=== PATIENT | female | born 1950 | race Caucasian/White ===

== ENCOUNTER 2017-03-03 10:53 | Inpatient (IN) | payer MEDICARE, OTHER ==
--- NOTE | ~2017-03-03 | CO ---
Unit #: [id number] #: [id number] Patient: ANA MARÍA BECKETT [id number] [facility]. [address] [place], [place] [address] [id number] I MR#: [id number] NAME: ANA MARÍA BECKETT. ROOM: 317 Age: 66 Sex: F Admission Date: 03/03/2017 : 1950 Attending Physician: Nusrat Barriga M.D. Primary Care Physician: Miladys Cardenas Consultation Date: 03/03/2017 CONSULTATION REPORT REASON FOR CONSULTATION Congestive heart failure. HISTORY OF PRESENT ILLNESS This is a 66-year-old white female, previously known to our group with prior hospitalizations. The patient was seen in 09/2016 for bkvrz-lw-jopjecj diastolic congestive heart failure and a right pleural effusion, which required a right thoracentesis. She is known to have COPD; permanent atrial fibrillation; chronic respiratory failure, on home oxygen; iron deficiency anemia; and hypertension. She is followed by [facility] as an outpatient. She presented to the emergency department with complaints of increased swelling, shortness of breath, and cough. Her cough has been nonproductive. There are no reports of dizziness, palpitations, or syncope. She denies chest pain. She has had significant swelling in the breast, abdomen, and lower extremities. She states that she does not follow fluid restriction. She was recently on antibiotics and was told to drink extra water. She does try to maintain a low-sodium diet. Of note, she does live at home and uses a walker to ambulate. In the emergency department; temperature 97.8, pulse 107, respirations 20, blood pressure 98/78, and O2 saturation 98% on room air. She was found to have anasarca and a right pleural effusion. She was admitted and Cardiology was consulted for further management. EKG revealed atrial fibrillation with a very low-voltage QRS. Exam was significant for distant breath and heart sounds. The patient underwent a bedside 2D echocardiogram, which was very limited due to thoracic curve. There is no evidence of a pericardial effusion, but again views were limited. PAST MEDICAL HISTORY 1. A 2D echocardiogram from 09/20/2016 revealed rvtx-on-oakbrmrg tricuspid regurgitation. Trace pulmonic regurgitation. No pericardial effusion. Also had mildly enlarged right atrium and mildly dilated right ventricle. Ejection fraction estimated 55% to 60%. Mild LVH. 2. Chronic diastolic congestive heart failure. 3. History of right pleural effusion, status post thoracentesis on 09/22/2016. 4. Permanent atrial fibrillation. 5. Chronic respiratory failure, on home oxygen. 6. COPD. 7. Obstructive sleep apnea. 8. Hypertension. Unit #: [id number] #: [id number] Patient: ANA MARÍA BECKETT 9. Bipolar. 10. History of common bile duct stent. 11. Kyphoscoliosis. 12. Chronic back pain. 13. History of small-bowel obstruction. 14. History of alcohol abuse, reformed. 15. Active tobacco abuse with current use of electronic cigarettes. PAST SURGICAL HISTORY 1. Cholecystectomy. 2. . 3. Gastric bypass. 4. Hysterectomy. 5. Hernia repair. 6. Right hand surgery. 7. Tummy tuck. 8. ERCP. HOME MEDICATIONS 1. Oxycodone/acetaminophen 10/325 mg, 0.5 tab p.o. q.4 hours p.r.n. 2. Coreg 25 mg p.o. b.i.d. 3. Lasix 20 mg p.o. b.i.d. 4. Zofran 4 mg p.o. q.8 hours p.r.n. 5. Aspirin 81 mg p.o. daily. 6. Vitamin D3 2000 units p.o. daily. 7. Singulair 10 mg p.o. daily. 8. Omeprazole 40 mg p.o. daily. 9. Colace one tablet p.o. daily p.r.n. for constipation. 10. Symbicort 160/4.5 mcg one puff inhalation daily. 11. Albuterol 2 puffs inhalation daily. ALLERGIES Penicillin, and mold. SOCIAL HISTORY The patient lives in a private residence. She uses a walker to ambulate. She is fairly sedentary. She has a history of alcohol abuse, but not current. She has a history of smoking cigarettes for over 30 years. She currently uses E-cigarettes. There are no reports of illicit drug use. FAMILY HISTORY Significant for heart disease in a brother. REVIEW OF SYSTEMS A 10-point review of systems is negative except for details noted above in HPI. PHYSICAL EXAMINATION CONSTITUTIONAL: This is a 66-year-old white female, in no acute distress, but ill appearing. SKIN: Warm and dry. NECK: Supple. No jugular vein distention. No hepatojugular reflux. Normal carotid upstrokes. No carotid bruits auscultated. HEART: S1 and S2. Irregularly irregular. No murmurs, rubs, or gallops. LUNGS: Bilateral breath sounds. Diminished in the right lung. Respirations are even and nonlabored. No rales, rhonchi, or wheezes. ABDOMEN: Soft, nontender, and nondistended. Positive bowel sounds auscultated x4 quadrants. No ascites noted. Unit #: [id number] #: [id number] Patient: ANA MARÍA BECKETT EXTREMITIES: Bilateral lower extremities have +1 pitting edema. DP and PT pulses are 2+. Capillary refill is less than 2 seconds. DIAGNOSTIC STUDIES LABORATORY RESULTS: White blood cell count 14.4, hemoglobin 11.8, hematocrit 36.3, and platelets 205. Sodium 129, potassium 3.1, chloride 91, CO2 of 30, BUN 8, creatinine 0.6, and glucose 103. Troponin 0.05 and 0.05. BNP 400. TSH pending. INR 1.2. IMAGING STUDIES: Chest x-ray reveals a large volume right pleural effusion. Fixed hiatal hernia. Large body habitus. Probable small left pleural effusion. CARDIOVASCULAR STUDIES: Electrocardiogram reveals atrial fibrillation with low-voltage QRS. Nonspecific ST-T wave changes. IMPRESSION 1. Anasarca. 2. Recurrent large right pleural effusion. 3. Wjjge-wu-muojkbd diastolic congestive heart failure. 4. Atrial fibrillation with rapid ventricular response. 5. Hypokalemia. 6. Hyponatremia. 7. Chronic obstructive pulmonary disease. 8. Bipolar disorder. 9. Hypertension. 10. History of common bile duct stricture. 11. Active nicotine abuse with e-cigarettes. PLAN 1. The patient presented to the hospital with complaints of shortness of breath and edema. She was admitted and Cardiology was consulted. 2. Agree with 2 g sodium diet. Strict I's and O's, and fluid restriction. 3. We will start IV diuretics, and monitor electrolytes and renal function. 4. The patient's blood pressure is borderline low. Her carvedilol has been placed on hold. 5. Pulmonology has been consulted for management of right pleural effusion. 6. The patient has been advised to be compliant with fluid restriction. 7. There are no complaints of chest pain. Cardiac enzymes are negative. 8. The patient has been advised to refrain from nicotine. Dictated by... WAYNE Benavidez TD: 03/05/2017 12:22 JOB #: [id number] Unit #: [id number] #: [id number] Patient: ANA MARÍA BECKETT CONSULTATION REPORT Page 1 of 1 X X CONSULTATION REPORT
--- NOTE | ~2017-03-03 | CO ---
Unit #: [id number] #: [id number] Patient: ANA MARÍA BECKETT [id number] [address] [address] [id number] I MR#: [id number] NAME: ANA MARÍA BECKETT. ROOM: 317 Age: 66 Sex: F Admission Date: 03/03/2017 : 1950 Attending Physician: Nusrat Barriga M.D. Primary Care Physician: Miladys Cardenas Consultation Date: 03/04/2017 CONSULTATION REPORT REASON FOR CONSULT Effusion. HISTORY OF PRESENT ILLNESS This is a pleasant 66-year-old female with past medical history significant for diastolic congestive heart failure, atrial fibrillation, COPD, hypertension, bipolar disorder, common bile duct stricture who presented to the emergency room with progressive shortness of breath, fatigue, and generalized edema for the last few days. Patient stated that she had a similar presentation in September 2016. She was discharged on diuretics but currently she is on low-dose of Lasix which she thinks is not doing the trick. She was increased to 40 mg daily before admission but also it did not improve her symptoms. Patient was supposed to be on Pradaxa, but she did not take it because she was not convinced to. PAST MEDICAL HISTORY 1. Diastolic congestive heart failure. 2. Atrial fibrillation. 3. COPD. 4. Hypertension. 5. Bipolar disorder. PAST SURGICAL HISTORY 1. Cholecystectomy. 2. Gastric bypass. 3. Hysterectomy. 4. Hernia repair. 5. Right hand surgery. SOCIAL HISTORY The patient lives with her mom and they both take care of each other. She has a history of alcoholism but she is sober for the last 12-15 years. She continues to smoke electronic cigarettes. She walks with a walker. FAMILY HISTORY Hypertension. ALLERGIES Penicillin and mold. HOME MEDICATIONS 1. Oxycodone and acetaminophen. 2. Coreg. 3. Lasix. Unit #: [id number] #: [id number] Patient: ANA MARÍA BECKETT 4. Zofran. 5. Aspirin. 6. Vitamin D. 7. Montelukast. 8. Omeprazole. 9. Colace. 10. Symbicort. 11. Ventolin. REVIEW OF SYSTEMS A 12-point review of systems was obtained and was negative except for what was mentioned in the HPI. PHYSICAL EXAMINATION GENERAL: The patient is in no acute distress. VITAL SIGNS: Temperature 98.3, pulse 95, respiratory rate 19, blood pressure 107/73. HEENT: Atraumatic, normocephalic. PERRLA. EMOI. NECK: Supple. No JVD. No lymphadenopathy. CHEST: Decreased breath sounds bilaterally, mainly on the right side. HEART: S1, S2. No murmur, gallops, or rubs. ABDOMEN: Soft, nontender. Bowel sounds are positive. No hepatosplenomegaly. EXTREMITIES: Plus 1 edema in the bilateral lower extremities. SKIN: No rashes. CENTRAL NERVOUS SYSTEM: Awake, alert, oriented x3. No focal motor/sensory deficits. EXTREMITIES: Plus 1 edema in the lower extremities. DIAGNOSTIC STUDIES LABORATORY: Creatinine 0.7, sodium 130, potassium 2.9, CO2 of 32. White blood count 6.7. IMAGING: Chest x-ray is consistent with right-sided pleural effusion, probably congestive heart failure related. IMPRESSION 1. Acute on chronic diastolic congestive heart failure exacerbation. 2. Anasarca. 3. Hyponatremia. 4. Chronic obstructive pulmonary disease. 5. Hypertension. 6. Bipolar disorder. PLAN 1. Patient is hemodynamically stable currently. Will continue to monitor very closely. 2. Strict input and output. 3. Bronchodilator as needed. 4. Will proceed with right-sided thoracentesis for diagnostic and therapeutic purposes. 5. IV diuretics per cardiology. 6. Deep venous thrombosis prophylaxis. I would like to thank you for allowing me to be a part of this patient's care. Unit #: [id number] #: [id number] Patient: ANA MARÍA BECKETT Dictated by... Remberto Montaño TD: 03/04/2017 10:21 JOB #: [id number] CONSULTATION REPORT Page 1 of 1 X DIPESH SINGH MD CONSULTATION REPORT
--- NOTE | ~2017-03-03 | HP ---
Unit #: [id number] #: [id number] Patient: ANA MARÍA BECKETT [id number] [facility] [address]. [place], [place] [address] [id number] I MR#: [id number] NAME: ANA MARÍA BECKETT. ROOM: [facility] Age: 66 Sex: F Admission Date: 03/03/2017 : 1950 Attending Physician: Akanksha Herring M.D. HISTORY AND PHYSICAL CHIEF COMPLAINT Swelling all over. HISTORY OF PRESENT ILLNESS The patient is a 66-year-old female with a past medical history of diastolic dysfunction, atrial fibrillation, COPD, hypertension, bipolar disorder, and common bile duct stricture, who presented to the emergency department for evaluation of the above. Of note, the patient was hospitalized at [facility] September 19-2016, for dyspnea. She had a 2D echo according to the Discharge Summary that showed normal LV function. She was also noted to have a large right pleural effusion and underwent thoracentesis. The thoracentesis was transudative in nature and thought to be secondary to congestive heart failure. The patient was discharged home on Pradaxa for atrial fibrillation. Per the patient, she discussed this with her primary care physician and stopped the Pradaxa. She is currently only taking 81 mg of aspirin daily. The patient states that she has had a four-day history of worsening shortness of breath and total body swelling. She states that she weighed 110 pounds about a month ago and is currently 144. She gets her legs wrapped due to chronic lymphedema. They were last wrapped on the 26 of February. She states that she sleeps in a recliner on her side. That is apparently not a new problem. She has had paroxysmal nocturnal dyspnea. She denies any dyspnea on exertion. She denies any chest pain and no cough or fever. She states that she has been taking her medications are prescribed. She takes Lasix 20 mg twice daily. In the emergency department, initial pulse and blood pressure were 107 and 99/78, respectively. Oxygen saturation was 98% on room air. Chest x-ray shows a large right pleural effusion and small left pleural effusion. BNP is 400. She was given 40 mg of Lasix IV, as well as 324 mg of aspirin. Blood pressure dipped into the 80s, most recently 90/69. She is being admitted to [facility] for evaluation and further treatment. PAST MEDICAL HISTORY 1. Admission to [facility] September 19-2016, for dyspnea. She underwent echocardiogram that showed normal LV function per the Discharge Summary. She was seen in consultation by Cardiology and Pulmonology. She underwent thoracentesis that showed transudative fluid consistent with congestive heart failure. She was discharged home on Pradaxa. Unit #: [id number] #: [id number] Patient: ANA MARÍA BECKETT 2. Atrial fibrillation previously on chronic anticoagulation with Pradaxa but not recently due to a discussion with her primary care physician. Now, she is only on 81 mg of aspirin daily. She has not seen Dr. Amin as an outpatient. 3. Diastolic dysfunction with normal ejection fraction in September 2016. 4. Chronic obstructive pulmonary disease. 5. Chronic respiratory failure, on two and a half liters of oxygen per nasal cannula at night. 6. Hypertension. 7. Bipolar disorder. 8. Common bile duct stent. PAST SURGICAL HISTORY 1. Cholecystectomy. 2. Gastric bypass. 3. section. 4. Hysterectomy. 5. Hernia repair. 6. Abdominoplasty. 7. Right hand surgery. SOCIAL HISTORY The patient lives alone. She has a history of alcoholism but has been sober for at least 12 years. She continues to smoke electronic cigarettes. She walks with a walker. FAMILY HISTORY Notable for her dad dying at the age of 90. Hypertension runs in the family. ALLERGIES Penicillin and mold. HOME MEDICATIONS 1. Oxycodone and acetaminophen 10/325 at one-half tablet q.3-4 hours p.r.n. 2. Coreg 25 mg twice daily. 3. Lasix 20 mg twice daily. 4. Zofran 4 mg p.r.n. 5. Aspirin 81 mg daily. 6. Vitamin D3 at 2000 units daily. 7. Montelukast 10 mg daily. 8. Omeprazole 40 mg daily. 9. Colace daily p.r.n. 10. Symbicort 160/4.5 inhaled daily. 11. Ventolin 2 puffs inhaled daily p.r.n. 12. Proventil t.i.d. p.r.n. REVIEW OF SYSTEMS A complete review of systems is negative except as indicated in the History of Present Illness. PHYSICAL EXAMINATION VITAL SIGNS: Temperature is 97.8, pulse 107, respirations 20, blood pressure 99/78, and oxygen saturation is 98% on room air. GENERAL: Patient is a female who is awake, alert, and in no acute distress. HEENT: Head is atraumatic. Mucous membranes are moist. Unit #: [id number] #: [id number] Patient: WHITE,ANA MARÍA Perry NECK: Supple. Trachea is midline. CARDIOVASCULAR: Irregular. LUNGS: Decreased breath sounds. Breathing is not labored. ABDOMEN: Soft with bowel sounds present in all four quadrants. EXTREMITIES: With 4+ pitting edema to the groin. NEUROLOGIC: Patient is awake and alert. She follows commands. PSYCHIATRIC: Mood and affect are normal. Patient is cooperative. SKIN: Skin of examined areas is warm and dry. DIAGNOSTIC STUDIES LABORATORY: Complete blood count notable for hemoglobin and hematocrit of 11.8 and 36.3, respectively. INR is 1.2. Comprehensive metabolic panel notable for sodium of 129, potassium 3.1, chloride 91, BUN and creatinine 8 and 0.6, respectively, calcium is 7.9 but corrects to 9.3 when albumin of 2.3 is accounted for, alkaline phosphatase 116, and magnesium is 1.9. Urinalysis notable for trace leukocyte esterase. BNP is 400. CK is 54 and troponin is 0.03. IMAGING: Chest x-ray shows a large right pleural effusion and possible small left pleural effusion. CARDIOLOGY: EKG shows atrial fibrillation with rapid ventricular response and a rate of 106 beats per minute. ASSESSMENT The patient is a 66-year-old female with: 1. Anasarca. 2. Right pleural effusion and possible left pleural effusion. She underwent thoracentesis in September that was transudative. 3. Congestive heart failure exacerbation, diastolic. The patient had a normal ejection fraction in September 2016. She received 40 mg of Lasix in the emergency department, and blood pressure dropped into the 80s. 4. Atrial fibrillation with rapid ventricular response. Rate is currently 98. She discontinued Pradaxa and is currently on aspirin only. 5. Hypokalemia. 6. Hyponatremia. 7. Chronic obstructive pulmonary disease. 8. Hypertension. 9. Bipolar disorder. 10. Common bile duct stricture. 11. Former smoker although the patient continues to smoke electronic cigarettes. PLAN 1. Admit to ICU. 2. Two gram sodium, 1800 mL fluid-restricted, heart-healthy diet if passes bedside swallow. 3. Dopamine drip per protocol for systolic blood pressure greater than 90. 4. Get results of 2D echo from last admission. 5. Strict I/Os. 6. Daily weights. 7. TSH. 8. Consult Dr. Amin regarding congestive heart failure. 9. Consult Dr. Hunt regarding right pleural effusion. 10. Supplemental oxygen. Unit #: [id number] #: [id number] Patient: ANA MARÍA BECKETT 11. DuoNebs. 12. Blood cultures x2 for further evaluation of hypotension. 13. Potassium/magnesium protocol. 14. Serial cardiac enzymes. 15. Repeat labs in the morning including magnesium. 16. Additional workup and consultants based on above. 1. Dictated by Akanksha Herring M.D. DEVANTE/emerson TD: 03/03/2017 20:02 JOB #: [id number] HISTORY AND PHYSICAL Page 1 of 1 X Akanksha Herring MD X HISTORY AND PHYSICAL
--- NOTE | ~2017-03-03 | CR72 ---
[facility] A Service of [facility] RADIOLOGY TEXT RESULTS PATIENT: ANA MARÍA BECKETT LOCATION: [facility] 317-01 : [birth year] UNIT #: [id number] AGE: [address]: Nusrta Barriga MD SEX: F ORDER DR: [id number] [facility] [address] [place], [place] [address] [id number] MR#: [id number] Acc #: [id number] NAME: ANA MARÍA BECKETT. : 1950 SEX: F STUDY DATE/TIME: 03/03/2017 11:17 UNIT: [facility] ROOM: STUDY DESCRIPTION: CR Chest Single View Portable Attending Physician: Tanya Chua M.D. Ordering Physician: Tanya Chua M.D. Primary Care Physician: Miladys Cardenas MEDICAL IMAGING REPORT This report is preliminary unless electronic signature is present EXAM Portable chest 03/03/2017 at 11:17 hours, [facility] HISTORY 66-year-old female, swelling all over, short of breath, symptoms noted today. History of congestive heart failure. COMPARISON Noncontrast chest CT 09/20/2016 with the portable chest 09/22/2016 FINDINGS AP portable chest exam again demonstrates large body habitus. Heart size is stable. Pulmonary vascularity appears normal with no radiographic evidence for heart failure. There is a large volume right pleural effusion present. Moderate hiatal hernia is also visible on today's portable image. There may be a small left pleural effusion present. No pulmonary infiltrates identified. IMPRESSION Large volume right pleural effusion now present. Previous thoracentesis 09/22/2016. Fixed hiatal hernia. Large body habitus. Probable small left effusion also present today. No evidence for congestive heart failure. Dictated by... Dayne Hsieh M.D. THIS IS AN ELECTRONICALLY VERIFIED REPORT Dayne Hsieh M.D. at 03/04/2017 9:39 AM JBB/jaz TD: 03/03/2017 15:39 [facility] A Service of [facility] RADIOLOGY TEXT RESULTS PATIENT: ANA MARÍA BECKETT LOCATION: A 317-01 : [birth year] UNIT #: [id number] AGE: [address]: Nusrat Barriga MD SEX: F ORDER DR: JOB #: [id number] MEDICAL IMAGING REPORT Page 1 of 1 COPY
--- NOTE | ~2017-03-03 | EKG ---
PATIENT: ANA MARÍA BECKETT UNIT #: [id number] Ventricular Rate: 106 BPM Atrial Rate: 159 BPM QRS Duration: 70 ms Q-T Interval: 296 ms QTC Calculation(Bezet): 393 ms Calculated R [place]: 107 degrees Calculated T [place]: -40 degrees Diagnosis Line: Atrial fibrillation with rapid ventricular Diagnosis Line: response Diagnosis Line: Low voltage QRS Diagnosis Line: Abnormal ECG Diagnosis Line: When compared with ECG of 19-SEP-2016 19:12, Diagnosis Line: No significant change was found Diagnosis Line: Confirmed by ILYA CHADWICK MD ([id number]) on Diagnosis Line: 03/03/2017 10:45:07 PM INTERPRETING : CONCHITA
--- NOTE | ~2017-03-03 | XA231 ---
[facility] A Service of [facility] RADIOLOGY TEXT RESULTS PATIENT: ANA MARÍA BECKETT LOCATION: [facility] 317-01 : [birth year] UNIT #: [id number] AGE: [address]: Nusrat Barriga MD SEX: F ORDER DR: [id number] [facility] [address] [place], [place] [address] [id number] I MR#: [id number] Acc #: [id number] NAME: ANA MARÍA BECKETT. : 1950 SEX: F STUDY DATE/TIME: 03/04/2017 15:35 UNIT: [address] ROOM: [facility] STUDY DESCRIPTION: XA Consult Attending Physician: Nusrat Barriga M.D. Ordering Physician: Nusrat Barrgia M.D. Primary Care Physician: Miladys Cardenas MEDICAL IMAGING REPORT This report is preliminary unless electronic signature is present EXAM Ultrasound of the hemithorax. INDICATION Right pleural effusion. This patient was noted to have a pleural effusion on a CT scan of the chest on 09/20/16. Fluid did appear somewhat loculated at that time. The patient did undergo an ultrasound guided thoracentesis on 09/22/16 with evacuation of about 500 cc of fluid. She has been referred for repeat ultrasound-guided thoracentesis. The risk, benefits and alternatives of the procedure were explained to the patient, and signed, informed consent was obtained. She was seated in the upright position. A preliminary ultrasound of right hemithorax showed only a very small volume of complex fluid. At this point, the procedure was terminated. IMPRESSION On ultrasound, the patient was noted to only have a small volume of complex, purulent material. It was thought to be amenable to ultrasound-guided drainage. Repeat CT of the chest may allow for better evaluation of this patient right pleural fluid. Dictated by... Radha Crooks M.D. THIS IS AN ELECTRONICALLY VERIFIED REPORT Radha Crooks M.D. at 03/05/2017 4:41 PM AFF/ea TD: 03/05/2017 11:37 JOB #: [id number] [facility] A Service of [facility] RADIOLOGY TEXT RESULTS PATIENT: ANA MARÍA BECKETT LOCATION: [facility] 317-01 : [birth year] UNIT #: [id number] AGE: [address]: Nusrat Barriga MD SEX: F ORDER DR: MEDICAL IMAGING REPORT Page 1 of 1 COPY
--- NOTE | ~2017-03-03 | DS ---
Unit #: [id number] #: [id number] Patient: ANA MARÍA BECKETT [id number] [address] [address] [id number] I MR#: [id number] NAME: ANA MARÍA BECKETT. ROOM: 317 Age: 66 Sex: F Admission Date: 03/03/2017 : 1950 Discharge Date: Attending Physician: Nusrat Barriga M.D. Primary Care Physician: Miladys Cardenas DISCHARGE SUMMARY DISCHARGE DIAGNOSES 1. Escherichia coli bacteremia, etiology unclear. 2. Atrial fibrillation with rapid ventricular rate: Patient refusing to take Pradaxa, please note. 3. Anasarca. 4. Ascites. 5. Chronic obstructive pulmonary disease exacerbation. 6. Hypokalemia. 7. Large right loculated pleural effusion. 8. Right hand wounds. 9. Acute on chronic diastolic heart failure. 10. Acute on chronic hypoxic respiratory failure. 11. Hypernatremia. 12. Hyponatremia. 13. Severe protein malnutrition. 14. Hypertension. 15. Bipolar. 16. History of common bile duct stent. 17. Chronic respiratory failure, on 2.5 L oxygen at home at night. CONSULTATIONS 1. Dr. Victor. 2. Dr. Castro. 3. Dr. Stewart. 4. Dr. Giordano. PROCEDURES None. LAB DATA WBC 5.8, hemoglobin 11.6, platelets 299, sodium 130, potassium 4.2, creatinine 0.5, digoxin 0.7. Blood cultures on March 04 shows E. coli. Repeat blood cultures on March [address] of the abdomen and pelvis shows diffuse subcutaneous edema, moderate volume ascites present. Diffuse fatty liver present. CT of the chest shows moderate size effusion on the right with loculation. Small bilateral effusions on the left. ALLERGIES Penicillin. Unit #: [id number] #: [id number] Patient: ANA MARÍA BECKETT DISCHARGE MEDICATIONS 1. Albuterol two puffs inhalation daily. 2. Albuterol nebulizer three times daily p.r.n. shortness of breath. 3. Symbicort 160 mcg, one puff inhalation daily. 4. Zofran 4 mg q.8 p.r.n. nausea. 5. Bactroban, apply topically three times daily. 6. Coreg 6.25 p.o. b.i.d. 7. Digoxin 0.125 mg p.o. daily. 8. Colace 100 mg p.o. daily p.r.n. constipation [id number]. 9. Lasix 40 p.o. b.i.d. 10. Montelukast 10 mg in the morning. 11. Aspirin 81 daily. 12. Percocet 5 mg q.3-4 p.r.n. pain. 13. Spironolactone 12.5 p.o. daily. 14. Omeprazole 40 daily. 15. Potassium 10 mEq daily. 16. Vitamin D3 2000 daily. 17. Ceftriaxone 2 g IV daily. Continue until 03/15/2017. HOSPITALIZATION COURSE 66-year-old admitted because of shortness of breath, found to have CHF. Acute on chronic hypoxic respiratory failure: Currently, she is back to baseline. Continue with home O2. Acute on chronic diastolic heart failure with severe anasarca and bilateral pleural effusion, loculated: Patient could not have thoracentesis. Patient currently breathing better. Continue with Lasix as per cardiology. Gram-negative bacteremia: Etiology unclear. CT of the chest and abdomen did not show any signs of infection. The patient was seen by infectious disease. Initially broad spectrum antibiotics have been started. Currently, patient is on Rocephin. She will continue until 03/15/2017. Patient currently has a midline for antibiotics. Patient will have home health. DC midline after antibiotics are done. Bilateral pleural effusion with ascites secondary to congestive heart failure: Continue with diuretics as per cardiology. Severe protein malnutrition: Continue with high protein diet at home. Hyponatremia secondary to congestive heart failure, currently stable. The patient is noncompliant with medical advice. She is refusing many of her medications including Lasix. I talked at length with her and also the cardiology nurse practitioner talked at length regarding taking her medications as advised. The patient will be discharged with home health. Follow with family physician in one week time. Discharge time taken is 40 minutes. Dictated by..Muna Barriga M.D. Unit #: [id number] #: [id number] Patient: SOPHYANA MARÍA SENA/leeanna TD: 03/10/2017 12:13 JOB #: [id number] DISCHARGE SUMMARY Page 1 of 1 X Nusrat Barriga MD DISCHARGE SUMMARY
--- NOTE | ~2017-03-03 | CT57 ---
[facility] A Service [facility] RADIOLOGY TEXT RESULTS PATIENT: ANA MARÍA BECKETT LOCATION: [facility] 317- : 52 UNIT #: [id number] AGE: [address]: Nusrat Barriga MD SEX: F ORDER DR: [id number] [facility] [address] [place], [place] [address] [id number] I MR#: [id number] Acc #: [id number] NAME: ANA MARÍA BECKETT : 1950 SEX: F STUDY DATE/TIME: 03/05/2017 17:20 UNIT: A U ROOM: [facility] STUDY DESCRIPTION: CT Chest Wo Cont Attending Physician: Nusrat Barriga M.D. Ordering Physician: Nusrat Barriga M.D. MEDICAL IMAGING REPORT This report is preliminary unless electronic signature is present EXAM Chest CT without contrast HISTORY Shortness of breath for the past 4 days. Bacteremia of unknown source. TECHNIQUE Axial images were obtained through the chest without contrast and evaluated at lung and mediastinal windows. This CT exam was performed with one or more of the following radiation dose reduction techniques: automatic exposure control, adjustment of mA and/or kV according to patient size, and iterative reconstruction. COMPARISON STUDIES Previous scan from 09/20/2016. FINDINGS Chest images at mediastinal window show extensive subcutaneous edema over the chest wall and the back. There are bilateral pleural effusions. The volume of pleural fluid is moderate on the right and smaller on the left with partial loculation. No pericardial fluid is seen. There is a sliding hiatal hernia and postoperative changes are noted in the stomach. No adenopathy is noted. Lung window imaging shows compressive atelectasis adjacent to the pleural effusions. There is a small nonspecific peripheral interstitial infiltrate in the lingula. It is new since the previous examination and likely represents mild atelectasis or fibrosis. IMPRESSION 1. There is less pleural fluid than on the previous examination. Small bilateral effusion on the left and moderate-sized effusion on the right with loculation. [facility] A Service [facility] RADIOLOGY TEXT RESULTS PATIENT: ANA MARÍA BECKETT LOCATION: [facility] 317-01 : 52 UNIT #: [id number] AGE: [address]: Nusrat Barriga MD SEX: F ORDER DR: 2. Atelectasis bilaterally, right greater than left. 3. Small nonspecific interstitial infiltrate in the lingula peripherally, not seen on the previous examination. This is of low suspicion for pneumonia. Dictated by... Gwyn Rey M.D. THIS IS AN ELECTRONICALLY VERIFIED REPORT Gwyn Rey M.D. at 03/11/2017 7:10 AM NANDO/wanda TD: 03/05/2017 23:36 JOB #: [id number] MEDICAL IMAGING REPORT Page 1 of 1 COPY
--- NOTE | ~2017-03-03 | CO ---
Unit #: [id number] #: [id number] Patient: ANA MARÍA BECKETT [id number] [address] [place], [place] [address] [id number] I MR#: [id number] NAME: ANA MARÍA BECKETT. ROOM: [facility] Age: 66 Sex: F Admission Date: 03/03/2017 : 1950 Attending Physician: Nusrat Barriga M.D. Primary Care Physician: Miladys Cardenas Consultation Date: 03/09/2017 CONSULTATION REPORT HISTORY OF PRESENT ILLNESS This patient is a 66-year-old white female with multiple cardiopulmonary problems including anasarca, atrial fibrillation, pleural effusion, ascites, various forms of E. coli bacteremia, etiology unclear. She says a couple of areas over her finger, the right index finger and also the back of the hand on the dorsum aspect of the hand, which show small open areas that have been scabbed. It looked potentially infected but I see no abscess formation at this point in time. These areas of concern appear to be superficial and self induced. The patient said that she fell and she possibly could have got a splinter in the right index finger; however, again, there is no clinical evidence of that. For past medical history and further details, see previous notes as well as notes done by her admitting physician and facility service associate. PHYSICAL EXAMINATION GENERAL APPEARANCE: Cooperative, alert, white female. EXTREMITIES: She has three areas of what appear to be superficial, partial-thickness injury with scabbing and weeping from the back of her right hand as well as her right index finger. We will go ahead and treat these by cleaning them as well as placing topical antibiotic ointment on it three times a day. We will see the patient back for follow up in this facility as long as she is here. Dictated by... Perry Stewart M.D. JAMES/adán TD: 03/09/2017 06:29 JOB #: [id number] Unit #: [id number] #: [id number] Patient: ANA MARÍA BECKETT CONSULTATION REPORT Page 1 of 1 X Perry Stewart MD CONSULTATION REPORT
--- NOTE | ~2017-03-03 | CO ---
Unit #: [id number] #: [id number] Patient: ANA MARÍA BECKETT [id number] [address] [address] [id number] I MR#: [id number] NAME: ANA MARÍA BECKETT. ROOM: 317 Age: 66 Sex: F Admission Date: 03/03/2017 : 1950 Attending Physician: Nusrat Barriga M.D. Primary Care Physician: Miladys Cardenas Consultation Date: 03/05/2017 CONSULTATION REPORT REASON FOR CONSULTATION Gram negative bacteremia. 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 The patient reports that in September of this year she was admitted with swelling and fluid overload and shortness of air. She returned to the hospital at this time for similar symptoms. The patient reports that she did not have any fever of chills at home. She denies any nausea or vomiting. She says her bowel pattern is intermittent with diarrhea and constipation. She has multiple GI issues in the past, but none more severe than her normal. The patient was brought to the hospital. She was given diuretics. She reports that her swelling in her extremities, breasts and abdomen overall feels better. She was found to also have a left pleural effusion, but she reports that she was taken down for a thoracentesis yesterday but there was not enough fluid to tap. Ongoing workup showed that she had one or two positive blood cultures for gram negative rods and infectious disease was asked to evaluate as she has no clear symptoms. The patient does note that she had some wounds on her lower extremities, but she has chronic lymphedema and these are being wrapped for the past month by her home health nurse and feels that they are overall improving. PAST MEDICAL HISTORY 1. Congestive heart failure per recent admission earlier this year. 2. Atrial fibrillation. 3. Chronic obstructive pulmonary disease. 4. Chronic respiratory failure on home oxygen at night. 5. Hypertension. 6. Bipolar disorder. 7. Common bile duct stent. 8. Lower extremity lymphedema. PAST SURGICAL HISTORY 1. Cholecystectomy. 2. Gastric bypass. 3. section. 4. Hysterectomy. 5. Hernia repair. 6. Abdominoplasty. 7. Right hand surgery. SOCIAL HISTORY Unit #: [id number] #: [id number] Patient: ANA MARÍA BECKETT The patient lives with family. She denies any current tobacco use, alcohol use or ongoing drug use. ALLERGIES Penicillin. She reports it causes some ingestion intolerance, but denies any wheezes or hives. She also reports she is allergic to cats and mold. CURRENT MEDICATIONS The patient has been given tobramycin times one and she is also on cefepime. For further medications, please refer to the patient's MAR. REVIEW OF SYSTEMS Negative fever. Negative chills. Negative sweats. Improving shortness of breath. No productive sputum, cough. No change in abdominal pattern per her normal and improving lower extremity edema and wounds. PHYSICAL EXAMINATION GENERAL: This is a no apparent distress female who was sitting on the side of the bed when I examined her. She does have some chronic spine curvature and she is obese. VITALS: Temperature 98.2, pulse 102, blood pressure 107/77, respiratory rate 16. HEENT: Pupils are equal. NECK: Supple. LUNGS: Diminished with almost absent breath sounds in the left lower lobe. HEART: S1 and S2 with tachycardia. ABDOMEN: Positive bowel sounds. Soft. No significant tenderness. Obese. EXTREMITIES: Bilateral lower extremities revealed in UNNA boots. When these were removed the patient did have some resolving blisters and she had some chronic skin changes, but no evidence of cellulitis or deep aggressive wounds. DIAGNOSTIC STUDIES IMAGING: Chest film shows large volume right pleural effusion with small left effusion. No congestive heart failure. LABORATORY: BUN 10, creatinine 0.7, sodium 128, potassium 3.6, chloride 92, CO2 29, bilirubin 1.2, AST 22, ALT 17, alkaline phosphatase 105, amylase less than 7, lipase 16. Lactic acid was not done this admission. White blood cell count 9.1, hemoglobin 10.9, hematocrit 33.4, platelets 164. Urinalysis was unremarkable. Microbiology data, urine culture was not done. Negative urinalysis. Blood culture showed 1 of 2 gram negative rods. Suspected e-coli. ASSESSMENT This is a 66-year-old female with a past history of congestive heart failure. She presented to the emergency room with shortness of air, lower extremity edema and body swelling. The patient denied any fever or chills. Recent procedures were suspicious of infection. The patient was found to have transient gram negative bacteremia. Her urinalysis was unremarkable. Exact etiology at this time is unclear. Identification of the gram negative laney is probable e-coli, but is still pending. At this time source is also not her lower extremity as her UNNA boots were removed and there is no significant cellulitis or open wounds. At this time agree with cefepime and the patient has already been given tobramycin one and she appears nontoxic. Will repeat blood cultures times 30 minutes apart and follow on the ID. Will follow the CT scan of the chest, abdomen and Unit #: [id number] #: [id number] Patient: ANA MARÍA BECKETT pelvis ordered by pulmonology at this time. Will discuss with Dr. Pedro Giordano this case and also ask wound care to replace her UNNA boot dressings. Thank you for allowing us to participate in the care of this patient. Further recommendations to follow pending the patient's clinical course. Dictated by... Shankar Hernandezgz TD: 03/05/2017 10:54 JOB #: [id number] CONSULTATION REPORT Page 1 of 1 X X CONSULTATION REPORT
--- NOTE | ~2017-03-03 | EKG ---
PATIENT: ANA MARÍA BECKETT UNIT #: [id number] Ventricular Rate: 103 BPM Atrial Rate: 103 BPM P-R Interval: 80 ms QRS Duration: 6 ms Q-T Interval: 294 ms QTC Calculation(Bezet): 385 ms P Robinson: 114 degrees Calculated R Robinson: 0 degrees Calculated T Robinson: 13 degrees Diagnosis Line: Atrial fibrillation Diagnosis Line: Indeterminate axis Diagnosis Line: Low voltage QRS Diagnosis Line: Nonspecific T wave abnormality Diagnosis Line: Abnormal ECG Diagnosis Line: When compared with ECG of 03-MAR-2017 11:08, Diagnosis Line: No significant change was found Diagnosis Line: Confirmed by ILYA CHADWICK MD ([id number]) on Diagnosis Line: 03/05/2017 7:35:50 AM INTERPRETING ISIDRA ARANGO
--- NOTE | ~2017-03-03 | HP ---
Unit #: [id number] #: [id number] Patient: ANA MARÍA BECKETT [id number] [facility] [address] [place], [place] [address] [id number] I MR#: [id number] NAME: ANA MARÍA BECKETT. ROOM: [facility] Age: 66 Sex: F Admission Date: 03/03/2017 : 1950 Attending Physician: Akanksha Herring M.D. HISTORY AND PHYSICAL CHIEF COMPLAINT Swelling all over. HISTORY OF PRESENT ILLNESS The patient is a 66-year-old female with a past medical history of diastolic dysfunction, atrial fibrillation, COPD, hypertension, bipolar disorder, and common bile duct stricture, who presented to the emergency department for evaluation of the above. Of note, the patient was hospitalized at [facility] September 19-2016, for dyspnea. She had a 2D echo according to the Discharge Summary that showed normal LV function. She was also noted to have a large right pleural effusion and underwent thoracentesis. The thoracentesis was transudative in nature and thought to be secondary to congestive heart failure. The patient was discharged home on Pradaxa for atrial fibrillation. Per the patient, she discussed this with her primary care physician and stopped the Pradaxa. She is currently only taking 81 mg of aspirin daily. The patient states that she has had a four-day history of worsening shortness of breath and total body swelling. She states that she weighed 110 pounds about a month ago and is currently 144. She gets her legs wrapped due to chronic lymphedema. They were last wrapped on the 26 of February. She states that she sleeps in a recliner on her side. That is apparently not a new problem. She has had paroxysmal nocturnal dyspnea. She denies any dyspnea on exertion. She denies any chest pain and no cough or fever. She states that she has been taking her medications are prescribed. She takes Lasix 20 mg twice daily. In the emergency department, initial pulse and blood pressure were 107 and 99/78, respectively. Oxygen saturation was 98% on room air. Chest x-ray shows a large right pleural effusion and small left pleural effusion. BNP is 400. She was given 40 mg of Lasix IV, as well as 324 mg of aspirin. Blood pressure dipped into the 80s, most recently 90/69. She is being admitted to [facility] for evaluation and further treatment. PAST MEDICAL HISTORY 1. Admission to [facility] September 19-2016, for dyspnea. She underwent echocardiogram that showed normal LV function per the Discharge Summary. She was seen in consultation by Cardiology and Pulmonology. She underwent thoracentesis that showed transudative fluid consistent with congestive heart failure. She was discharged home on Pradaxa. Unit #: [id number] #: [id number] Patient: ANA MARÍA BECKETT 2. Atrial fibrillation previously on chronic anticoagulation with Pradaxa but not recently due to a discussion with her primary care physician. Now, she is only on 81 mg of aspirin daily. She has not seen Dr. Amin as an outpatient. 3. Diastolic dysfunction with normal ejection fraction in September 2016. 4. Chronic obstructive pulmonary disease. 5. Chronic respiratory failure, on two and a half liters of oxygen per nasal cannula at night. 6. Hypertension. 7. Bipolar disorder. 8. Common bile duct stent. PAST SURGICAL HISTORY 1. Cholecystectomy. 2. Gastric bypass. 3. section. 4. Hysterectomy. 5. Hernia repair. 6. Abdominoplasty. 7. Right hand surgery. SOCIAL HISTORY The patient lives alone. She has a history of alcoholism but has been sober for at least 12 years. She continues to smoke electronic cigarettes. She walks with a walker. FAMILY HISTORY Notable for her dad dying at the age of 90. Hypertension runs in the family. ALLERGIES Penicillin and mold. HOME MEDICATIONS 1. Oxycodone and acetaminophen 10/325 at one-half tablet q.3-4 hours p.r.n. 2. Coreg 25 mg twice daily. 3. Lasix 20 mg twice daily. 4. Zofran 4 mg p.r.n. 5. Aspirin 81 mg daily. 6. Vitamin D3 at 2000 units daily. 7. Montelukast 10 mg daily. 8. Omeprazole 40 mg daily. 9. Colace daily p.r.n. 10. Symbicort 160/4.5 inhaled daily. 11. Ventolin 2 puffs inhaled daily p.r.n. 12. Proventil t.i.d. p.r.n. REVIEW OF SYSTEMS A complete review of systems is negative except as indicated in the History of Present Illness. PHYSICAL EXAMINATION VITAL SIGNS: Temperature is 97.8, pulse 107, respirations 20, blood pressure 99/78, and oxygen saturation is 98% on room air. GENERAL: Patient is a female who is awake, alert, and in no acute distress. HEENT: Head is atraumatic. Mucous membranes are moist. NECK: Supple. Trachea is midline. Unit #: [id number] #: [id number] Patient: ANA MARÍA BECKETT CARDIOVASCULAR: Irregular. LUNGS: Decreased breath sounds. Breathing is not labored. ABDOMEN: Soft with bowel sounds present in all four quadrants. EXTREMITIES: With 4+ pitting edema to the groin. NEUROLOGIC: Patient is awake and alert. She follows commands. PSYCHIATRIC: Mood and affect are normal. Patient is cooperative. SKIN: Skin of examined areas is warm and dry. DIAGNOSTIC STUDIES LABORATORY: Complete blood count notable for hemoglobin and hematocrit of 11.8 and 36.3, respectively. INR is 1.2. Comprehensive metabolic panel notable for sodium of 129, potassium 3.1, chloride 91, BUN and creatinine 8 and 0.6, respectively, calcium is 7.9 but corrects to 9.3 when albumin of 2.3 is accounted for, alkaline phosphatase 116, and magnesium is 1.9. Urinalysis notable for trace leukocyte esterase. BNP is 400. CK is 54 and troponin is 0.03. IMAGING: Chest x-ray shows a large right pleural effusion and possible small left pleural effusion. CARDIOLOGY: EKG shows atrial fibrillation with rapid ventricular response and a rate of 106 beats per minute. ASSESSMENT The patient is a 66-year-old female with: 1. Anasarca. 2. Right pleural effusion and possible left pleural effusion. She underwent thoracentesis in September that was transudative. 3. Congestive heart failure exacerbation, diastolic. The patient had a normal ejection fraction in September 2016. She received 40 mg of Lasix in the emergency department, and blood pressure dropped into the 80s. 4. Atrial fibrillation with rapid ventricular response. Rate is currently 98. She discontinued Pradaxa and is currently on aspirin only. 5. Hypokalemia. 6. Hyponatremia. 7. Chronic obstructive pulmonary disease. 8. Hypertension. 9. Bipolar disorder. 10. Common bile duct stricture. 11. Former smoker although the patient continues to smoke electronic cigarettes. PLAN 1. Admit to ICU. 2. Two gram sodium, 1800 mL fluid-restricted, heart-healthy diet if passes bedside swallow. 3. Dopamine drip per protocol for systolic blood pressure greater than 90. 4. Get results of 2D echo from last admission. 5. Strict I/Os. 6. Daily weights. 7. TSH. 8. Consult Dr. Amin regarding congestive heart failure. 9. Consult Dr. Hunt regarding right pleural effusion. 10. Supplemental oxygen. 11. DuoNebs. 12. Blood cultures x2 for further evaluation of hypotension. 13. Potassium/magnesium protocol. Unit #: [id number] #: [id number] Patient: ANA MARÍA BECKETT 14. Serial cardiac enzymes. 15. Repeat labs in the morning including magnesium. 16. Additional workup and consultants based on above. Forty-one (41) minutes critical care time spent in the care of this patient (2:25 to 3:06 p.m.). Dictated by... Akanksha Herring M.D. AW/emerson TD: 03/03/2017 20:02 JOB #: [id number] Dictated by Remberto Jc/am TD: 03/03/2017 20:28 JOB #: [id number] CC: Gemma/myrna Please Delete HISTORY AND PHYSICAL Page 1 of 1 X Akanksha Herring MD HISTORY AND PHYSICAL
--- NOTE | ~2017-03-03 | CT2 ---
[facility] A Service of [facility] & [facility] RADIOLOGY TEXT RESULTS PATIENT: ANA MARÍA BECKETT LOCATION: [facility] 317- : 52 UNIT #: [id number] AGE: [address]: Nusrat Barriga MD SEX: F ORDER DR: [id number] [facility]. [place], [place] [address] [id number] MR#: [id number] Acc #: [id number] NAME: ANA MARÍA BECKETT : 1950 SEX: F STUDY DATE/TIME: 03/05/2017 17:23 UNIT: A PCU ROOM: [facility] STUDY DESCRIPTION: CT Abd and Pelv W Cont Attending Physician: Nusrat Barriga M.D. Ordering Physician: Nusrat Barriga M.D. MEDICAL IMAGING REPORT This report is preliminary unless electronic signature is present EXAM Abdomen and pelvis CT with contrast HISTORY Shortness of breath for the past 4 days with a total body swelling and bacteremia of uncertain etiology. TECHNIQUE Axial images were obtained with intravenous contrast. 100 mL of Isovue was used. This CT exam was performed with one or more of the following radiation dose reduction techniques: automatic exposure control, adjustment of mA and/or kV according to patient size, and iterative reconstruction. FINDINGS There is a small hiatal hernia. Moderate volume ascites is seen in the peritoneal cavity. No loculated collections are seen to suggest an abscess. Generalized edema is seen over the abdomen and upper legs. The liver shows diffuse fatty infiltration. The spleen, kidneys, adrenals and pancreas are unremarkable and unchanged. There is no evidence of retroperitoneal adenopathy. No distended bowel loops are seen to suggest obstruction. In the pelvis, ascites is noted. There is no evidence of pelvic adenopathy, mass or fluid collection. Leg swelling is asymmetrically greater on the left than on the right. No pelvic vein thrombosis is identified. IMPRESSION 1. Diffuse subcutaneous edema extending down both legs with more leg swelling on the left than on the right. 2. Moderate volume ascites, new since the previous scan. No loculated collections are seen to suggest abscess. [facility] A Service of [facility] & [facility] RADIOLOGY TEXT RESULTS PATIENT: ANA MARÍA BECKETT LOCATION: [facility] 317-01 : [birth year] UNIT #: [id number] AGE: [address]: Nusrat Barriga MD SEX: F ORDER DR: 3. No evidence of bowel obstruction. 4. Diffuse fatty infiltration of the liver. Dictated by... Gwyn Rey M.D. THIS IS AN ELECTRONICALLY VERIFIED REPORT Gwyn Rey M.D. at 03/11/2017 7:10 AM NANDO/wanda TD: 03/05/2017 23:38 JOB #: [id number] MEDICAL IMAGING REPORT Page 1 of 1 COPY
[~2017-03-03 10:53] MED LIST: ALBUTEROL 0.5ML INH; ALBUTEROL MININEB NEB; ALBUTEROL17 GM INH; ALDACTONE25 MG PO; AMLODIPINE BESY10 MG PO; ASPIRIN EC81 M1 PO; ASPIRIN81 M2 PO; ATENOLOL PO; BACTRIM DS TABL1 TAB PO; CARVEDILOL25 MG PO; CHLORTHALIDONE25 MG PO; COLACE PO; CYANOCOBAL1000 MCG/1 IJ; DARVOCET-N 1001 TAB PO; DITROPAN XL5 M1 PO; FERRO-TIME325 MG PO; FERROUS SULFATE PO; FUROSEMIDE40 MG PO; KCL PO; KLOR-CON SPRIN10 MEQ PO; LASIX PO; LISINOPRIL30 MG PO; LORTAB 10/500 T1 TAB PO; LOTREL 10/20 MG1 CAP PO; MILK OF MAGNESIA PO; MUCINEX1200 MG/BO PO; NITROGYLCERIN SUBLINGUAL; NORVASC10 MG PO; OMEPRAZOLE20 M2 PO; OXYCODON HCL-AP1 TA2 PO; OXYCODONE-ACET1 EAC1 PO; PLAVIX PO; PLENDIL PO; PRILOSEC PO; PROAIR HFA8.5 GM IH; PROAIR HFA8.5 GM INH; SYMBICORT INH; TRIAMCINOLONE A15 G2 EXT; VASOTEC PO; VITAMIN D32000 UNIT PO; ZESTRIL40 MG PO; ZOFRAN ODT4 MG DOB; ZOFRAN2 MG/M1 PO
[2017-03-03 11:22] LABS: BASOPHIL% 0.6 % (0-2.5); EOSINOPHIL% 0.8 % (0.0-7.0); HEMATOCRIT 36.3 % (35.0-45.0); HEMOGLOBIN 11.8 gm/dL (12.0-16.0); LYMPHOCYTE# 0.8 X10e3 (1.0-3.5); LYMPHOCYTE% 17.1 % (17.0-45.0); MEAN CELL VOLUME 86.4 FL (83-96); MEAN CORPUSCULAR HEMOGLOBIN 28.1 PG (28-34); MEAN CORPUSCULAR HGB CONC 32.5 g/dL (30-36); MEAN PLATELET VOLUME 8.4 FL (6.5-11.5); MONOCYTE# 0.5 X10e3 (0-1.0); MONOCYTE% 10.8 % (3.0-12.0); NEUTROPHIL# 3.1 X10e3 (1.5-7.1); NEUTROPHIL% 70.7 % (40-75); PLATELET COUNT 205 X10e3 (140-420); RED CELL DISTRIBUTION WIDTH 15.1 % (11.0-15.5); WHITE BLOOD COUNT 4.4 X10e3 (4.0-10.5)
[2017-03-03 11:29] LABS: DIFF IND NO
[2017-03-03 11:44] LABS: INR 1.2; PARTIAL THROMBOPLASTIN TIME 27.9 SECONDS (23.5-31.3); PROTHROMBIN TIME (PATIENT) 13.2 SECONDS (10.0-11.7)
[2017-03-03 11:59] LABS: URINE SOURCE CLEAN CATCH
[2017-03-03 12:00] LABS: ALBUMIN SERUM 2.3 g/dL (3.5-5.0); BILIRUBIN, DIRECT 0.3 mg/dL (0.0-0.2); BILIRUBIN,INDIRECT 0.4 mg/dL (0.0-0.9); BILIRUBIN,TOTAL 0.7 mg/dL (0.2-2.0); BUN/CREATININE RATIO 13.33; CALCIUM SERUM 7.9 mg/dL (8.4-10.2); CREATININE SERUM 0.6 mg/dL (0.6-1.4); GLOM FILT RATE Estimated 96.3 mL/min (>60); MAGNESIUM 1.9 mg/dL (1.6-3.0); POTASSIUM 3.1 mmol/L (3.5-5.1); PROTEIN TOTAL SERUM 5.3 g/dL (6.0-8.3)
[2017-03-03 12:02] LABS: URINE APPEARANCE CLEAR; URINE BILIRUBIN NEG (NEG); URINE BLOOD NEG (NEG); URINE COLOR YELLOW; URINE GLUCOSE NEG (NEG); URINE KETONE NEG (NEG); URINE LEUKOCYTE ESTERASE TRACE (NEG); URINE NITRATE NEG (NEG); URINE PH 6.5 (5-8); URINE PROTEIN NEG (NEG); URINE SPECIFIC GRAVITY 1.009 (1.003-1.035); URINE UROBILINOGEN 0.2 MG/DL (NEG)
[2017-03-03 12:04] LABS: URBCS1 AUWI 0-2 /[HPF] (0-2); URINE BACTERIA AUWI NEG (NEGATIVE); URINE SQUAMOUS EPITHELIAL CELL NONE SEEN /[HPF]; UWBCS1 AUWI 0-2 (0-5)
[2017-03-03 12:05] LABS: CULTURE INDICATED? NO
[2017-03-03 12:55] LABS: CK TOTAL 54 IU/L (26-140)
[2017-03-03 13:13] LABS: POC - CKMB <1.0 ng/mL (0.0-7.9); POC - TROPONIN <0.05 ng/mL (<=0.05)
[2017-03-03] MEDS ORDERED: OXYCODONE-ACET1 EAC1 PO (13:56)
[2017-03-03] MEDS ORDERED: LASIX20 MG PO (13:57)
[2017-03-03] MEDS ORDERED: ZOFRAN ODT4 M1 PO (13:57)
[2017-03-03] MEDS ORDERED: CARVEDILOL25 MG PO (13:57)
[2017-03-03] MEDS ORDERED: ASPIRIN81 M2 PO (13:58)
[2017-03-03] MEDS ORDERED: MONTELUKAST SOD10 MG PO (13:58)
[2017-03-03] MEDS ORDERED: VITAMIN D32000 UNI1 PO (13:58)
[2017-03-03] MEDS ORDERED: OMEPRAZOLE40 M1 PO (13:58)
[2017-03-03] MEDS ORDERED: ALBUTEROL17 GM INH (13:59)
[2017-03-03] MEDS ORDERED: SYMBICORT INH (13:59)
[2017-03-03] MEDS ORDERED: COLACE PO (13:59)
[2017-03-03] MEDS ORDERED: ALBUTEROL 0.5ML NEB (14:00)
[2017-03-03 20:35] LABS: CK TOTAL 40 IU/L (26-140)
[2017-03-04 02:00] LABS: CK TOTAL 36 IU/L (26-140)
[2017-03-04 05:32] LABS: BASOPHIL% 0.3 % (0-2.5); EOSINOPHIL% 0.1 % (0.0-7.0); HEMATOCRIT 32.4 % (35.0-45.0); HEMOGLOBIN 10.7 gm/dL (12.0-16.0); LYMPHOCYTE# 0.7 X10e3 (1.0-3.5); LYMPHOCYTE% 10.8 % (17.0-45.0); MEAN CELL VOLUME 85.4 FL (83-96); MEAN CORPUSCULAR HEMOGLOBIN 28.2 PG (28-34); MEAN PLATELET VOLUME 8.4 FL (6.5-11.5); MONOCYTE# 0.7 X10e3 (0-1.0); MONOCYTE% 10.1 % (3.0-12.0); NEUTROPHIL# 5.3 X10e3 (1.5-7.1); NEUTROPHIL% 78.7 % (40-75); PLATELET COUNT 177 X10e3 (140-420); RED BLOOD COUNT 3.79 X10e (3.90-5.30); RED CELL DISTRIBUTION WIDTH 15.4 % (11.0-15.5)
[2017-03-04 05:34] LABS: DIFF IND NO; WHITE BLOOD COUNT 6.7 X10e3 (4.0-10.5)
[2017-03-04 06:27] LABS: BILIRUBIN,TOTAL 1.2 mg/dL (0.2-2.0); BUN/CREATININE RATIO 11.42; CALCIUM SERUM 7.8 mg/dL (8.4-10.2); CREATININE SERUM 0.7 mg/dL (0.6-1.4); GLOM FILT RATE Estimated 91.6 mL/min (>60); MAGNESIUM 1.7 mg/dL (1.6-3.0); PROTEIN TOTAL SERUM 4.7 g/dL (6.0-8.3)
[2017-03-04 06:38] LABS: POTASSIUM 2.9 mmol/L (3.5-5.1)
[2017-03-05 06:13] LABS: BASOPHIL% 0.1 % (0-2.5); HEMATOCRIT 33.4 % (35.0-45.0); HEMOGLOBIN 10.9 gm/dL (12.0-16.0); LYMPHOCYTE# 0.8 X10e3 (1.0-3.5); LYMPHOCYTE% 8.7 % (17.0-45.0); MEAN CELL VOLUME 86.7 FL (83-96); MEAN CORPUSCULAR HEMOGLOBIN 28.4 PG (28-34); MEAN CORPUSCULAR HGB CONC 32.7 g/dL (30-36); MONOCYTE% 10.8 % (3.0-12.0); NEUTROPHIL# 7.3 X10e3 (1.5-7.1); NEUTROPHIL% 80.4 % (40-75); PLATELET COUNT 164 X10e3 (140-420); RED BLOOD COUNT 3.85 X10e (3.90-5.30); RED CELL DISTRIBUTION WIDTH 15.9 % (11.0-15.5); WHITE BLOOD COUNT 9.1 X10e3 (4.0-10.5)
[2017-03-05 06:23] LABS: DIFF IND NO
[2017-03-05 06:48] LABS: BUN/CREATININE RATIO 14.28; CALCIUM SERUM 7.9 mg/dL (8.4-10.2); CREATININE SERUM 0.7 mg/dL (0.6-1.4); GLOM FILT RATE Estimated 91.6 mL/min (>60); PHOSPHOROUS 3.3 mg/dL (2.5-4.6); POTASSIUM 3.6 mmol/L (3.5-5.1)
[2017-03-06 07:01] LABS: HEMATOCRIT 36.2 % (35.0-45.0); HEMOGLOBIN 11.7 gm/dL (12.0-16.0); MEAN CELL VOLUME 86.9 FL (83-96); MEAN CORPUSCULAR HGB CONC 32.2 g/dL (30-36); MEAN PLATELET VOLUME 8.9 FL (6.5-11.5); RED BLOOD COUNT 4.17 X10e (3.90-5.30); RED CELL DISTRIBUTION WIDTH 15.8 % (11.0-15.5); WHITE BLOOD COUNT 8.7 X10e3 (4.0-10.5)
[2017-03-06 07:33] LABS: BUN/CREATININE RATIO 17.14; CALCIUM SERUM 8.2 mg/dL (8.4-10.2); CREATININE SERUM 0.7 mg/dL (0.6-1.4); GLOM FILT RATE Estimated 91.6 mL/min (>60); PHOSPHOROUS 3.1 mg/dL (2.5-4.6); POTASSIUM 4.7 mmol/L (3.5-5.1)
[2017-03-07 06:39] LABS: HEMATOCRIT 34.3 % (35.0-45.0); HEMOGLOBIN 11.2 gm/dL (12.0-16.0); MEAN CELL VOLUME 86.6 FL (83-96); MEAN CORPUSCULAR HEMOGLOBIN 28.3 PG (28-34); MEAN CORPUSCULAR HGB CONC 32.7 g/dL (30-36); MEAN PLATELET VOLUME 8.6 FL (6.5-11.5); RED BLOOD COUNT 3.96 X10e (3.90-5.30); RED CELL DISTRIBUTION WIDTH 16.1 % (11.0-15.5); WHITE BLOOD COUNT 6.9 X10e3 (4.0-10.5)
[2017-03-07 07:22] LABS: ALBUMIN SERUM 1.8 g/dL (3.5-5.0); BILIRUBIN,TOTAL 0.2 mg/dL (0.2-2.0); BUN/CREATININE RATIO 15.71; CALCIUM SERUM 7.7 mg/dL (8.4-10.2); CREATININE SERUM 0.7 mg/dL (0.6-1.4); GLOM FILT RATE Estimated 91.6 mL/min (>60); MAGNESIUM 1.8 mg/dL (1.6-3.0); POTASSIUM 4.4 mmol/L (3.5-5.1); PROTEIN TOTAL SERUM 4.9 g/dL (6.0-8.3)
[2017-03-08 06:25] LABS: CALCIUM SERUM 7.8 mg/dL (8.4-10.2); CREATININE SERUM 0.5 mg/dL (0.6-1.4); GLOM FILT RATE Estimated 102.3 mL/min (>60); POTASSIUM 4.5 mmol/L (3.5-5.1)
[2017-03-09 06:39] LABS: HEMATOCRIT 38.2 % (35.0-45.0); HEMOGLOBIN 12.5 gm/dL (12.0-16.0); MEAN CELL VOLUME 86.3 FL (83-96); MEAN CORPUSCULAR HEMOGLOBIN 28.2 PG (28-34); MEAN CORPUSCULAR HGB CONC 32.7 g/dL (30-36); MEAN PLATELET VOLUME 8.2 FL (6.5-11.5); RED BLOOD COUNT 4.42 X10e (3.90-5.30); RED CELL DISTRIBUTION WIDTH 16.1 % (11.0-15.5); WHITE BLOOD COUNT 5.8 X10e3 (4.0-10.5)
[2017-03-09 07:42] LABS: CREATININE SERUM 0.5 mg/dL (0.6-1.4); DIGOXIN (LANOXIN) 0.7 ng/ml (1.0-2.0); GLOM FILT RATE Estimated 102.3 mL/min (>60); POTASSIUM 4.2 mmol/L (3.5-5.1)
[2017-03-10 10:43] LABS: BASOPHIL% 0.3 % (0-2.5); EOSINOPHIL% 0.7 % (0.0-7.0); HEMATOCRIT 35.7 % (35.0-45.0); HEMOGLOBIN 11.6 gm/dL (12.0-16.0); LYMPHOCYTE% 17.1 % (17.0-45.0); MEAN CELL VOLUME 86.9 FL (83-96); MEAN CORPUSCULAR HEMOGLOBIN 28.1 PG (28-34); MEAN CORPUSCULAR HGB CONC 32.3 g/dL (30-36); MEAN PLATELET VOLUME 7.7 FL (6.5-11.5); MONOCYTE# 0.6 X10e3 (0-1.0); MONOCYTE% 10.4 % (3.0-12.0); NEUTROPHIL# 4.1 X10e3 (1.5-7.1); NEUTROPHIL% 71.5 % (40-75); PLATELET COUNT 299 X10e3 (140-420); RED BLOOD COUNT 4.11 X10e (3.90-5.30); RED CELL DISTRIBUTION WIDTH 15.9 % (11.0-15.5); WHITE BLOOD COUNT 5.8 X10e3 (4.0-10.5)
[2017-03-10 10:45] LABS: DIFF IND NO
[2017-03-10] MEDS ORDERED: COREG6.25 M1 PO (11:21)
[2017-03-10] MEDS ORDERED: BACTROBAN15 GM TOP (11:23)
[2017-03-10] MEDS ORDERED: LANOXIN125 MCG PO (11:23)
[2017-03-10] MEDS ORDERED: ALDACTONE25 MG PO (11:26)
[2017-03-10] MEDS ORDERED: K-DUR20 ME1 PO (11:27)
[2017-03-10] MEDS ORDERED: CEFTRIAXONE1 GM IV (11:28)
== END 2017-03-10 15:43 | disposition home health service (06) | DRG 291 ==
LOC: CED 10:53 → C3A PCU 15:10 → CEDOF 15:10 → CED 15:35 → C3A PCU 15:35 → CEDOF 18:02 → C3A PCU 03-04 07:58
PROVIDERS: Family Medicine; Internal Medicine; Internal Medicine Cardiovascular Disease; Student in an Organized Health Care Education/Training Program
PROC: B24BZZZ Ultrasonography of Heart with Aorta (ICD-10-PCS; principal; 2017-03-03)
PROC: 05H933Z Insertion of Infusion Device into Right Brachial Vein, Percutaneous Approach (ICD-10-PCS; 2017-03-09)
PROC: B54MZZA Ultrasonography of Right Upper Extremity Veins, Guidance (ICD-10-PCS; 2017-03-09)
DX: I11.0 Hypertensive heart disease with heart failure (principal); J96.21 Acute and chronic respiratory failure with hypoxia; E43 Unspecified severe protein-calorie malnutrition; E87.0 Hyperosmolality and hypernatremia; R18.8 Other ascites; Z99.81 Dependence on supplemental oxygen; E87.1 Hypo-osmolality and hyponatremia; I50.33 Acute on chronic diastolic (congestive) heart failure; Z68.31 Body mass index [BMI] 31.0-31.9, adult; F17.290 Nicotine dependence, other tobacco product, uncomplicated; F31.9 Bipolar disorder, unspecified; B96.20 Unspecified Escherichia coli [E. coli] as the cause of diseases classified elsewhere; I48.2 Chronic atrial fibrillation; J44.9 Chronic obstructive pulmonary disease, unspecified; E87.6 Hypokalemia; G89.29 Other chronic pain; M54.9 Dorsalgia, unspecified; Z88.0 Allergy status to penicillin; Z91.19 Patient's noncompliance with other medical treatment and regimen; Z90.49 Acquired absence of other specified parts of digestive tract; Z90.710 Acquired absence of both cervix and uterus; Z79.82 Long term (current) use of aspirin; Z98.84 Bariatric surgery status; Z82.49 Family history of ischemic heart disease and other diseases of the circulatory system; D50.9 Iron deficiency anemia, unspecified; E88.09 Other disorders of plasma-protein metabolism, not elsewhere classified; G47.33 Obstructive sleep apnea (adult) (pediatric); L98.9 Disorder of the skin and subcutaneous tissue, unspecified; M41.9 Scoliosis, unspecified
CPT/HCPCS: 36415; 51702; 71010; 71250; 74177; 76140; 80048; 80053; 80076; 80162; 81003; 82550; 82553; 83615; 83735; 83880; 84100; 84132; 84443; 84484; 85025; 85027; 85610; 85730; 87040; 87077; 87186; 93005; 93308; 94640; 94664; 94760; 96374; 97162; 97165; 99285; G8978-GP; G8979-GP; G8980-GP; G8987-GO; G8988-GO; G8989-GO; J0692; J0696; J1160; J1940; J3260; J3475; J3490; Q9967

== ENCOUNTER 2017-04-09 14:03 | Inpatient (IN) | payer MEDICARE, OTHER ==
[~2017-04-09] VITALS: Ht 144.8 cm; Wt 62.2 kg
--- NOTE | ~2017-04-09 | CO ---
Unit #: [id number] #: [id number] Patient: ANA MARÍA BECKETT [id number] [address] [address] [id number] MR#: [id number] NAME: ANA MARÍA BECKETT ROOM: 304 Age: 66 Sex: F Admission Date: 04/09/2017 : 1950 Attending Physician: Maribeth Bergman M.D. Primary Care Physician: Miladys Cardenas CONSULTATION REPORT REASON FOR ADMISSION Shortness of breath. HISTORY OF PRESENT ILLNESS This is a well known patient to our service. 66-year-old female with a past medical history significant for chronic diastolic congestive heart failure, obstructive sleep apnea, COPD, chronic hypoxic respiratory failure, who presented to the emergency room with a few days history of wheezing, progressive shortness of breath, cough productive of any sputum. Patient denied any chest pain, nausea, vomiting or diarrhea. The patient chronically is on 2 L nasal cannula and she lives at home with her 88-year-old mother. They both take care of each other but they are both in bad shape and she has refused in the past being at a residential. PAST MEDICAL HISTORY 1. Chronic diastolic congestive heart failure. 2. COPD. 3. Chronic hypoxic respiratory failure. 4. Severe protein malnutrition. 5. Hypertension. 6. Bipolar disorder. 7. Lymphedema. 8. Chronic atrial fibrillation. PAST SURGICAL HISTORY 1. Cholecystectomy. 2. Gastric bypass surgery. 3. section. 4. Hysterectomy. 5. Hernia repair. 6. Right hand surgery. 7. Common bile duct stenting. ALLERGIES Penicillin, molds. HOME MEDICATIONS 1. Coreg. 2. Digoxin. 3. Prilosec. 4. Aldactone. 5. Symbicort. Unit #: [id number] #: [id number] Patient: ANA MARÍA BECKETT 6. Prozac. 7. Klor-Con. 8. Singulair. 9. Lasix. 10. Percocet. 11. Aspirin. FAMILY HISTORY Hypertension. SOCIAL HISTORY Patient lives with her mother at home and they take care of each other. She has a history of alcohol abuse but hasn't drank in over a decade. She continues to smoke e-cigarettes and she denied any drug abuse. REVIEW OF SYSTEMS Twelve point review of systems were obtained and were negative except for what was mentioned in the HPI. PHYSICAL EXAMINATION GENERAL: The patient is lethargic but easy to arouse. VITAL SIGNS: Temperature 98.2, blood pressure 105/63, respiratory rate 16, O2 saturation 96% on 3 L nasal cannula. HEENT: Atraumatic, normocephalic. PERRLA, EOMI. NECK: Supple. No JVD, no lymphadenopathy. CHEST: Very shallow breathing with mild rhonchi at the bases. HEART: S1, S2. No murmur, gallops or rubs. ABDOMEN: Soft, nontender. Bowel sounds positive. No hepatosplenomegaly. EXTREMITIES: No edema or cyanosis. SKIN: No rashes. HEALTHCARE MARKETER: Awake, alert, oriented x3 but she is lethargic at this point. No focal motor/sensory deficit. DIAGNOSTIC STUDIES LABORATORY: Creatinine 0.7, sodium 127, CO2 90, white blood count 8.0, hemoglobin 13.7, platelets 219. IMAGING: Chest x-ray is reviewed and noted by me. ASSESSMENT 1. Acute on chronic hypoxic respiratory failure. 2. Acute on chronic diastolic congestive heart failure. 3. COPD exacerbation. 4. Loculated effusion. 5. Hyponatremia. 6. Chronic atrial fibrillation. 7. Hypotension. 8. Malnutrition. 9. Bipolar disorder. PLAN 1. Patient's oxygen will be weaned down to baseline which is 2 to 2.5 L nasal cannula. Will continue patient on IV diuretics and will watch creatinine and urinalysis very closely in light of her poor nutrition and low protein. 2. Will hold on thoracentesis at this point as it was attempted a month ago and it was loculated. Unit #: [id number] #: [id number] Patient: ANA MARÍA BECKETT 3. Will continue patient on bronchodilator and IV steroids. 4. Physical therapy. I would like to thank Dr. Bergman for allowing me to be part of this patient's care. Dictated by... Remberto Montaño TD: 04/10/2017 12:27 JOB #: [id number] CONSULTATION REPORT Page 1 of 1 X DIPESH SINGH MD X CONSULTATION REPORT
--- NOTE | ~2017-04-09 | CO ---
Unit #: [id number] #: [id number] Patient: ANA MARÍA BECKETT [id number] [address] [address] [id number] MR#: [id number] NAME: ANA MARÍA BECKETT. ROOM: 304 Age: 66 Sex: F Admission Date: 04/09/2017 : 1950 Attending Physician: Maribeth Bergman M.D. Primary Care Physician: Miladys Cardenas Consultation Date: 04/10/2017 CONSULTATION REPORT REASON FOR CONSULTATION Congestive heart failure. HISTORY OF PRESENT ILLNESS This is a 66-year-old white female, known to our group with a past medical history of chronic diastolic congestive heart failure and recurrent right pleural effusion, status post thoracentesis in the past. The patient underwent 2D echocardiogram on 09/20/2016 which revealed [id number] tricuspid regurgitation and trace pulmonic regurgitation. Ejection fraction was normal at 55% to 60%. She has a history of permanent atrial fibrillation, but refuses anticoagulation. She is known to have COPD on home oxygen, hypertension, obstructive sleep apnea, bipolar disorder, and history of alcohol abuse. She currently uses nicotine with e-cigarettes. She presented to the emergency department with complaints of shortness of breath, lower extremity edema, wheezing, and cough. She denies fever or chills. There are no reports of chest pain, dizziness, or syncope. She has had some occasional palpitations, but nothing sustained. She states that she has been taking all of her medications. She has been known in the past not to take her medications or follow instructions. During her last admission, she was refusing some Lasix. She was going to be started on Pradaxa, but also refused to take it. In the emergency department, her temperature was 98.5, pulse 77, respirations 12, blood pressure 117/94, and O2 saturation 98% on room air. She was given a dose of Solu-Medrol and started on antibiotics with cefepime, vancomycin, and tobramycin. She was admitted for acute on chronic respiratory failure, diastolic congestive heart failure, and COPD. Cardiology was consulted for congestive heart failure. PAST MEDICAL HISTORY 1. Recent admission to [facility] on 03/03/2017 for Escherichia coli bacteremia, atrial fibrillation with rapid ventricular response, acute on chronic diastolic congestive heart failure, large right pleural effusion, and respiratory failure. 2. 2D echocardiogram on 09/20/2016 revealed [id number] tricuspid regurgitation. Trace pulmonic regurgitation. Ejection fraction 55% to 60%. 3. permanent atrial fibrillation, refuses anticoagulation. 4. COPD, on home oxygen. 5. Obstructive sleep apnea. 6. Hypertension. 7. Bipolar disorder. 8. History of alcohol abuse. Unit #: [id number] #: [id number] Patient: ANA MARÍA BECKETT 9. History of common bile duct stent. 10. Kyphoscoliosis. 11. Chronic back pain. 12. Small bowel obstruction. 13. Active nicotine abuse with e-cigarettes. PAST SURGICAL HISTORY 1. Cholecystectomy. 2. . 3. Gastric bypass. 4. Hysterectomy. 5. Hernia repair. 6. Right hand surgery. 7. Tummy tuck. 8. ERCP. HOME MEDICATIONS Coreg 6.25 mg p.o. b.i.d., digoxin 125 mcg p.o. daily, Prilosec 40 mg p.o. daily, spironolactone 25 mg p.o. b.i.d., Symbicort 160/4.5 mcg 2 puffs inhalation daily, Prozac 20 mg p.o. daily, potassium chloride 10 mEq p.o. daily, Singulair 10 mg p.o. daily, Lasix 20 mg p.o. daily, Percocet 10/325 mg one tablet p.o. every 6 hours p.r.n., vitamin B12 injection every 3 months, ferrous sulfate 325 mg p.o. weekly, vitamin D3 2000 units p.o. daily, aspirin 81 mg p.o. daily. ALLERGIES Penicillin and mold. SOCIAL HISTORY The patient lives in a private residence. She uses e-cigarettes. She is a reformed smoker. There are no reports of illicit drug use. She has a history of alcohol use, but not currently. FAMILY HISTORY Significant for heart disease in her brother. REVIEW OF SYSTEMS Ten-point review of systems negative except for details noted above in HPI. PHYSICAL EXAMINATION VITAL SIGNS: Temperature 97.4, pulse 86, blood pressure 97/69. CONSTITUTIONAL: This is a 66-year-old ill-appearing white female, in no acute distress. SKIN: Warm and dry. NECK: Supple. Positive jugular vein distention. No hepatojugular reflux. Normal carotid upstrokes. No carotid bruits auscultated. HEART: S1 and S2. Irregularly irregular. No murmurs, rubs, or gallops. LUNGS: Bilateral breath sounds have scattered wheezes. Respirations are even and nonlabored. No rhonchi or rales. ABDOMEN: Obese with significant edema and tightness. Positive bowel sounds auscultated x4 quadrants. Possible ascites. EXTREMITIES: Bilateral lower extremities have 4+ pitting edema. DP and PT pulses are 2+. Capillary refill is less than 2 seconds. DIAGNOSTIC STUDIES LABORATORY RESULTS: White blood cell count 8, hemoglobin 13.7, hematocrit 41.4, platelets 219. Sodium 127, potassium 4.1, chloride 90, CO2 of 23, BUN 12, creatinine 0.7, glucose 80. Calcium 7.9, albumin 1.9. Total Unit #: [id number] #: [id number] Patient: WHITE,CHRISTOPHER protein 5.2. AST 40, ALT 22, alkaline phos 146. Lipase 14. BNP 1371. UA with 1+ leuks, 10 to 25 white blood cells. Urine culture pending. IMAGING STUDIES: Chest x-ray reveals stable moderate right pleural effusion with atelectasis and probable partial collapse. Probable new loculated effusion in the left lower chest. CARDIOVASCULAR STUDIES: EKG reveals atrial fibrillation with low-voltage QRS which is not a new finding. IMPRESSION 1. Acute on chronic diastolic congestive heart failure with an ejection fraction of 55% to 60%. 2. Moderate right pleural effusion, recurrent. 3. Probable new left loculated pleural effusion. 4. Permanent atrial fibrillation with rapid ventricular response, refuses anticoagulation. 5. Chronic obstructive pulmonary disease, on home oxygen. 6. Obstructive sleep apnea. 7. Hypertension. 8. Hyponatremia. 9. History of bipolar. 10. History of alcohol use. 11. Active nicotine with e-cigarette. PLAN 1. The patient presented to the hospital with complaints of shortness of breath and edema. She was admitted and Cardiology was consulted. 2. We will increase diuretics and continue strict intake and output, and fluid restriction. 3. The patient is on a beta-franky and digoxin for heart rate control. She refuses long-term anticoagulation. 4. She is ill-appearing and the hospitalist is going to discuss hospice and comfort measures due to recurrent CHF and pleural effusions. Thank you for consulting us. Dictated by... Pam Pickering APRN for Remberto Huynh TD: 04/11/2017 01:12 JOB #: [id number] CONSULTATION REPORT Page 1 of 1 X X CONSULTATION REPORT
--- NOTE | ~2017-04-09 | A ---
[facility] Nutrition Therapy DATE: 04/10/17 Patient: ANA MARÍA BECKETT Physician: MARIS Address: [address] [place] [address] Room/Bed: [address] [place] [address], Zip: [place] [address] Admit Date: 04/09/17 Date of : [birth year] Height: 4 9 Weight: 137 62.2 NUTRITIONAL ASSESSMENT: REASON: 1 point nutrition risk RE: Pressure ulcer 66 yo female admitted for SOA PMH: CHF, COPD, HTN, gastric bypass, hernia repair, bipolar disorder, Afib, respiratory failure, severe protein-calorie malnutrition with anasarca/ ascites, lymphedema Anthropometrics: Ht: 4'9" wt: 62.2 kg BMI: 29.7 Please note, this pt's BMI and weight are likely skewed by fluid fluctuation noting CHF, lymph edema, ascites, anasarca Labs: Na+ 127 Cl- 90 Ca++ 7.9 Alb 1.9 BNP 1371 Meds: Furosemide, solu-medrol, zofran, protonix, vitamin D, ferrous gluconate I/O & Bowel function: 240/400, last BM 04/09 Skin Integrity: Stage II pressure ulcer to coccyx (per RN report) Redness BUE Edema: BLE 1+ Trunk generalized Ascites noted Estimated Nutrition Needs: Increased due to malnutrition Diet: NPO Assessment: Chart reviewed, events noted. 66 yo female admitted for SOA with h/o CHF and COPD. Pt was previously ordered a heart healthy diet, and is currently NPO for possible thoracentesis. RN reports that the pt has a stage II pressure ulcer to her coccyx. RD spoke with the pt at bedside. Pt reports that she has likely lost weight; however, this is not reflected in her weight d/t fluid accumulation (edema, ascites noted above). MD notes severe protein-calorie malnutrition. Pt appears malnourished with protruding bones and thin appearance. See physical malnutrition note. Pt reports that she tries to watch her sodium intake and read labels; however, she was unable to report how she does this. 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 RD stressed the importance of adequate protein-calorie intake. Pt agreed, and reports that she does not like Ensure, but is agreeable to Magic Cup supplements. RD will order. Pt also reported to RD that she has to have a bowel movement [facility] Nutrition Therapy DATE: 04/10/17 Patient: ANA MARÍA BECKETT Physician: MARIS Address: [address] [place] [address] Room/Bed: [address] [place] [address], Zip: [place] [address] Admit Date: 04/09/17 Date of : [birth year] Height: 4 9 Weight: 137 62.2 immediately after eating, and that this contributes to poor PO intake. MD notes poor prognosis and comfort measures will be initiated. Please see recommendations below. Dx: Severe protein-calorie malnutrition RT decreased appetite, clinical condition AEB prolonged poor intake, weight loss of unknown amount, protruding clavicle and shoulder bones, minimal to no muscle definition, hollow orbital pads. Intervention: 1. 2 gram Na+ diet once feasible 2. Magic Cup TID Monitoring, Evaluation and Goals: 1. Oral intake; advance diet, tolerate 50-100% of meals and supplements 2. Improve labs; Na+ 127, Ca++ 3. Skin; promote healing, prevent further breakdown 4. GI; promote regular GI function Recommendations: 1. Once medically feasible, advance the pt to a 2 gram Na+ diet as tolerated. Liberalize as deemed appropriate by MD. 2. Order Magic Cup TID with meals for supplemental nutrition once advance to PO diet. 3. Encourage adequate protein- energy intake once diet advances. Pt is at moderate nutritional risk. RD will follow hospital course per protocol. Respectfully, MYCHAL BARKER RD, LD [facility] cc: client file
--- NOTE | ~2017-04-09 | EKG ---
PATIENT: ANA MARÍA BECKETT UNIT #: [id number] Ventricular Rate: 89 BPM Atrial Rate: 141 BPM QRS Duration: 66 ms Q-T Interval: 366 ms QTC Calculation(Bezet): 445 ms Calculated R [place]: 52 degrees Calculated T [place]: 137 degrees Diagnosis Line: Atrial fibrillation Diagnosis Line: Low voltage QRS Diagnosis Line: Septal infarct , age undetermined Diagnosis Line: Possible Lateral infarct , age undetermined Diagnosis Line: Abnormal ECG Diagnosis Line: Diagnosis Line: Confirmed by ERIC OZUNA MD ([id number]), corporate bond trader Diagnosis Line: CLINT MEDINA ([id number]) on 06/08/2017 6:57:24 AM INTERPRETING MD: LAITH ORTIZ
--- NOTE | ~2017-04-09 | HP ---
Unit #: [id number] #: [id number] Patient: ANA MARÍA BECKETT [id number] [address] [place], [place] [address] [id number] I MR#: [id number] NAME: ANA MARÍA BECKETT. ROOM: 304 Age: 66 Sex: F Admission Date: 04/09/2017 : 1950 Attending Physician: Maribeth Bergman M.D. Primary Care Physician: Miladys Cardenas A.P.R.N. HISTORY AND PHYSICAL CHIEF COMPLAINT Shortness of breath. HISTORY OF PRESENT ILLNESS Ms. Beckett is a 66-year-old female with a complicated medical history who presented to the ER for above. I will note, patient was just discharged from this facility on March 10, 2017, with E. coli bacteremia, a diastolic congestive heart failure exacerbation, and a COPD exacerbation. Patient presents back with a two to three-day period of increasing shortness of breath. Patient states she has been taking her Lasix at home. However, she notes that over the past couple of days she was more short of breath. She is coughing, but it is not always productive. Denies any fever. She states that she has perhaps had some increasing abdominal swelling. No sick contacts. She realized "I couldn't help my mother" and decided to come to the hospital. Upon presentation here, oxygen saturations were 98% on two liters, and patient was afebrile. Lab work has revealed a significantly elevated BNP of greater than 1300, a sodium level of 125, and chest x-ray reveals a significant right-sided pleural effusion. Patient is being admitted for further evaluation. PAST MEDICAL HISTORY 1. Chronic diastolic congestive heart failure with frequent flare ups. Per record review, most recent ejection fraction was 55% to 60% in September 2016. 2. Chronic obstructive pulmonary disease. 3. Chronic hypoxic respiratory failure maintained on 2.5 liters of oxygen per nasal cannula at bedtime. 4. Severe protein malnutrition with associated anasarca/ascites. 5. History of large right pleural effusion. This underwent thoracentesis in September 2016 but was too loculated in February 2017 for thoracentesis per record review. 6. Hypertension. 7. Bipolar disorder. 8. Chronic lymphedema. 9. Chronic atrial fibrillation for which the patient refuses anticoagulation again, per record review. PAST SURGICAL HISTORY 1. Cholecystectomy. 2. Gastric bypass surgery. 3. section. 4. Hysterectomy. Unit #: [id number] #: [id number] Patient: ANA MARÍA BECKETT 5. Hernia repair. 6. Abdominoplasty. 7. Right hand surgery. 8. Common bile duct stenting. ALLERGIES Penicillin and mold. HOME MEDICATIONS 1. Coreg 6.25 mg b.i.d. 2. Digitek 125 mcg p.o. daily. 3. Prilosec 40 mg daily. 4. Aldactone 25 mg b.i.d. 5. Symbicort 160/4.5 mcg 2 puffs daily. 6. Prozac 20 mg daily. 7. Klor-Con 10 mEq daily. 8. Singulair 10 mg daily. 9. Lasix 20 mg daily. 10. Percocet 10/325 at 1 tablet every 6 hours p.r.n. for pain. 11. Vitamin B12 injected every 3 months. 12. Ferrous sulfate 325 mg weekly. 13. Vitamin D3 at 2000 units p.o. daily. 14. Aspirin 81 mg daily. FAMILY HISTORY Notable for dad dying at the age of 90. Hypertension runs in the family. SOCIAL HISTORY Patient was residing with her mother according to what she told me today. She has a history of alcohol abuse but has not drank in over a decade. She continues to smoke electronic cigarettes and reportedly walks with a walker. REVIEW OF SYSTEMS Denies any fever, denies any vision change or sore throat, and denies any chest pain or palpitations. She does endorse orthopnea and sleeps upright in a recliner, but this is not a new finding. Cough as noted above intermittently productive. No nausea, vomiting, diarrhea, constipation, melena, or hematochezia. She has had some increasing abdominal distention. She denies dysuria or hematuria. She states that her legs have been hurting with perhaps a mild increased amount of swelling. She did have a fall at home yesterday and she states "my knee buckled," but she did not sustain any injury. Otherwise, a 10-point review of systems is reviewed and is negative. PHYSICAL EXAMINATION VITAL SIGNS: Temperature 98.5, blood pressure currently 99/70, pulse rate 87, respiratory rate 18, and oxygen saturation is 98% on 3 liters of oxygen per nasal cannula. GENERAL: Patient is initially drowsy but is arousable and answers questions. She is alert and oriented x3. She looks frail and chronically ill. HEENT: Pupils equally round and reactive to light bilaterally. Anicteric sclerae. No conjunctival pallor. Oropharynx with moist mucous membranes. No erythema or exudate. NECK: Supple. No lymphadenopathy, no thyromegaly, and no JVD. HEART: Irregularly irregular without any murmur, rub, or gallop. LUNGS: Significantly decreased breath sounds on the right but with some Unit #: [id number] #: [id number] Patient: WHITE,ANA MARÍA Perry crackles. Left is more clear, and I cannot appreciate any wheezing. ABDOMEN: Soft. It is nontender. It is distended with significant amount of edema noted in the skin. Positive bowel sounds. EXTREMITIES: No cyanosis or clubbing and 1 to 2+ lower extremity pitting edema. There is a mild amount of erythema of the lower extremities bilaterally. NEUROLOGIC: Cranial nerves II-XII intact. Sensation appears intact in all four extremities bilaterally, and deep tendon reflexes are normal in upper and lower extremities bilaterally. Musculature particularly of the lower extremities is poor, making me suspicious that patient is not very mobile at baseline. PSYCHIATRIC: No suicidal or homicidal ideation. MUSCULOSKELETAL: Some mild hypertrophy of the knees but no erythema. DIAGNOSTIC STUDIES LABORATORY: ABG done in the emergency department reveals a pH of 7.48, PCO2 of 42, and PO2 of 69 on 3.5 liters of oxygen per nasal cannula. Urinalysis reveals 1+ leukocyte esterase, trace protein, and 10-25 WBCs but is negative for bacteria and has a moderate amount of squamous cells. Troponin is negative. CBC reveals a white blood cell count of 8.2, hemoglobin 13.9, and platelet count of 236,000. Differential is 87% neutrophils. Lactic acid is normal at 1.9. BNP is 1371. Basic metabolic panel reveals a sodium of 125, potassium 3.8, chloride 90, bicarb 24, BUN 10, creatinine 0.7, and glucose of 99. Calcium is 7.7, albumin is 1.9, and alkaline phosphatase is 146. Lipase is normal. IMAGING: Chest x-ray done in the emergency department reveals significantly increasing size of right pleural effusion with associated cephalization and increased pulmonary vascular size. CARDIOLOGY: EKG reveals atrial fibrillation. ASSESSMENT 1. Acute on chronic hypoxic respiratory failure secondary to #2 and #3. 2. Acute on chronic diastolic congestive heart failure with most recent ejection fraction of 60%. 3. Mild acute exacerbation of chronic obstructive pulmonary disease. 4. Large right pleural effusion likely secondary to underlying congestive heart failure. 5. Hyponatremia likely hypervolemic. 6. Chronic atrial fibrillation, currently rate controlled and for which the patient refuses anticoagulation. 7. Abnormal urinalysis but unlikely to represent urinary tract infection. 8. Anasarca secondary to congestive heart failure and poor nutritional status. 9. Severe protein malnutrition. 10. Bipolar disorder. 11. History of hypertension. PLAN 1. Will admit patient to inpatient status with telemetry. 2. I am going to start patient with a single dose of Lasix IV x1 now. I will monitor her blood pressure overnight, and if blood pressure remains stable, will initiate continued IV Lasix in the morning. I am also going to ask Cardiology to further evaluate the patient. 3. Will titrate O2 for saturations greater than or equal to 90% and ask Dr. Victor to evaluate the patient as he has seen her in the past. 4. In regards to her COPD, I will place her on Solu-Medrol and empiric Unit #: [id number] #: [id number] Patient: ANA MARÍA BECKETT, though I suspect pneumonia is less likely. I am going to check a swallow study as well. 5. In regards to patient's right-sided pleural effusion, I am going to arrange for thoracentesis in the morning and send fluid for Gram stain, culture, LDH, and protein. I will note, per record review, this was transudative in the past. 6. I will check spot urine sodium and urine osmolality in regards to patient's hyponatremia and again monitor after a single dose of Lasix. 7. Will continue rate control for patient's chronic atrial fibrillation. Following thoracentesis, I will place her on therapeutic Lovenox. 8. Continue home medications for other chronic conditions. 9. PT/OT to evaluate and treat. 10. Protonix as PPI for prophylaxis. 1. Dictated by Maribeth Bergman M.D. CARLIE/emerson TD: 04/09/2017 21:45 JOB #: [id number] HISTORY AND PHYSICAL Page 1 of 1 X Maribeth Bergman MD HISTORY AND PHYSICAL
--- NOTE | ~2017-04-09 | MAL ---
[facility] Nutrition Therapy DATE: 04/10/17 Patient: ANA MARÍA Perry SOPHY Physician: MARIS Address: [address] [place] [address] Room/Bed: [address] [place] [address], Zip: [place] [address] Admit Date: 04/09/17 Date of : [birth year] Height: 4 9 Weight: 137 62.2 PHYSICAL MALNUTRITION ASSESSMENT Energy Intake, Chronic Illness Severely reduced: </=50% needs for >/=1 month Energy Intake Comment: Pt reports prolonged poor appetite and intake. She did not consume anything for two days CERTIFIED MASSAGE THERAPIST. Weight Loss, Chronic Illness Weight Loss, Comment: Exact amount of weight loss unknown d/t to fluid accumulation. Pt reports that she has definitely lost fat and gained fluid. Physical Findings Body Fat and Muscle Mass Severe: (obvious) significant muscle wasting and/or loss of subcutaneous fat Physical Findings Functional Capacity Moderate: (suggested) reduced functional capacity Physical Findings Fluid Accumulation Severe: (obvious) increased fluid/edema Physical Findings Comment: Based on RD observation and physical examination, the pt appears very thin with minimal to no muscle definition. Pt has protruding clavicle, shoulder, and rib bones. Hollow scooping is also present under the pt's eyes. Malnutrition Survey Results: Malnutrition identified Malnutrition Etiology Summary: Chronic illness severe Malnutrition Survey Comment: See RD nutrition assessment for additional information. Respectfully, MYCHAL BARKER, RD, LD [facility] Nutrition Therapy DATE: 04/10/17 Patient: ANA MARÍA BECKETT Physician: MARIS Address: [address] [place] [address] Room/Bed: [address] [place] [address], Zip: [place] [address] Admit Date: 04/09/17 Date of : [birth year] Height: 4 9 Weight: 137 62.2 cc: client file
--- NOTE | ~2017-04-09 | CR72 ---
[facility] A Service of [facility] & [facility] RADIOLOGY TEXT RESULTS PATIENT: ANA MARÍA BECKETT LOCATION: [facility] 304-01 : [birth year] UNIT #: [id number] AGE: [address]: Maribeth Bergman MD SEX: F ORDER DR: [id number] [facility] [address] [place], [place] [address] [id number] I MR#: [id number] Acc #: [id number] NAME: ANA MARÍA BECKETT. : 1950 SEX: F STUDY DATE/TIME: 04/09/2017 14:31 UNIT: A U ROOM: 304 STUDY DESCRIPTION: CR Chest Single View Portable Attending Physician: Maribeth Bergman M.D. Ordering Physician: Aicha Harris M.D. Primary Care Physician: Miladys Cardenas MEDICAL IMAGING REPORT This report is preliminary unless electronic signature is present EXAM Chest x-ray 04/09/2016 COMPARISON Chest single view dated 03/03/2017. HISTORY Shortness of air. FINDINGS Frontal view of the chest was obtained. Re-demonstrated is a moderate right-sided pleural effusion with probable underlying atelectasis/infiltrate and partial collapse. There is interval new extra-pulmonary convex-shaped opacity in the left lateral lower chest extending towards the mid-chest. It could represent probable loculated pleural effusion. Mild left lung base atelectatic changes are seen. There is diffuse mild prominence of the bronchovascular markings and interstitium in the visualized portions of the lungs suggestive of mild congestion in the appropriate clinical setting. It is slightly more pronounced when compared to the prior study and it could be technical or mild interval worsening. No pneumothorax. IMPRESSION 1. There is interval new convex opacity in the left lateral lower chest, probably extra-pulmonary. It is suspicious for a small loculated pleural effusion, new since prior study from last month. 2. There is some prominence of the bronchovascular markings in the interstitium. Part of it could be due to technical difference. Part of it could be some superimposed acute interstitial disease, like pulmonary vascular congestion in the appropriate clinical setting. 3. Previously noted moderate right pleural effusion with underlying atelectasis/infiltrate is again seen, stable. No pneumothorax is STS. [facility] A Service of [facility] & [facility] RADIOLOGY TEXT RESULTS PATIENT: ANA MARÍA BECKETT LOCATION: [facility] 304-01 : [birth year] UNIT #: [id number] AGE: [address]: Maribeth Bergman MD SEX: F ORDER DR: obviously seen in the current study. Dictated by... Martha Patel M.D. THIS IS AN ELECTRONICALLY VERIFIED REPORT Martha Patel M.D. at 04/13/2017 9:41 AM CPR/pcl TD: 04/09/2017 17:22 JOB #: [id number] MEDICAL IMAGING REPORT Page 1 of 1 COPY
[~2017-04-09 14:03] MED LIST changes: +ALBUTEROL 0.5ML NEB; +BACTROBAN15 GM TOP; +CEFTRIAXONE1 GM IV; +COREG6.25 M1 PO; +K-DUR20 ME1 PO; +LANOXIN125 MCG PO; +LASIX20 MG PO; +MONTELUKAST SOD10 MG PO; +OMEPRAZOLE40 M1 PO; +VITAMIN D32000 UNI1 PO; +ZOFRAN ODT4 M1 PO
[2017-04-09 14:17] LABS: ARTERIAL BLD GAS O2 SATURATION 93.8 % (90.0-100.0); ARTERIAL BLOOD GAS CARBOXY HB 0.6 %sat (0.0-9.0); ARTERIAL BLOOD GAS HCO3 31.1 mmol/L; ARTERIAL BLOOD GAS MET HB 0.6 %sat (0.0-2.0); ARTERIAL BLOOD GAS PCO2 41.7 mmHg (35.0-45.0)
[2017-04-09 14:18] LABS: ARTERIAL BLOOD GAS ART SITE RIGHT BRACHIAL; ARTERIAL BLOOD GAS DELIVERY LPM; ARTERIAL BLOOD GAS LITER FLOW 3.5; ARTERIAL BLOOD GAS PO2 68.7 mmHg (80.0-100); ARTERIAL BLOOD GAS VENT MODE NC; ARTERIAL DRAW? YES
[2017-04-09 15:11] LABS: URINE SOURCE CATH
[2017-04-09 15:16] LABS: URINE APPEARANCE CLEAR; URINE BILIRUBIN NEG (NEG); URINE BLOOD NEG (NEG); URINE COLOR DK YELLOW; URINE GLUCOSE NEG (NEG); URINE KETONE TRACE (NEG); URINE LEUKOCYTE ESTERASE 1+ (NEG); URINE NITRATE NEG (NEG); URINE PROTEIN TRACE (NEG); URINE SPECIFIC GRAVITY 1.024 (1.003-1.035); URINE UROBILINOGEN 0.2 MG/DL (NEG)
[2017-04-09 15:19] LABS: CULTURE INDICATED? YES; URINE BACTERIA AUWI NEG (NEGATIVE); URINE SQUAMOUS EPITHELIAL CELL MOD /[HPF]
[2017-04-09 15:37] LABS: URINE TRANSITIONAL EPI CELLS MODERATE /[HPF]
[2017-04-09 15:45] LABS: POC - CKMB 3.7 ng/mL (0.0-7.9); POC - TROPONIN <0.05 ng/mL (<=0.05)
[2017-04-09] MEDS ORDERED: DIGITEK125 MC1 PO (15:45)
[2017-04-09] MEDS ORDERED: [UNRECOGNIZED DRUG - OTHER] (15:45)
[2017-04-09] MEDS ORDERED: COREG6.25 M1 PO (15:45)
[2017-04-09] MEDS ORDERED: SINGULAIR PO (15:46)
[2017-04-09] MEDS ORDERED: ALDACTONE PO (15:46)
[2017-04-09] MEDS ORDERED: PRILOSEC PO (15:46)
[2017-04-09] MEDS ORDERED: PROZAC10 M1 PO (15:46)
[2017-04-09] MEDS ORDERED: LASIX20 MG PO (15:46)
[2017-04-09] MEDS ORDERED: SYMBICORT INH (15:46)
[2017-04-09] MEDS ORDERED: KCL PO (15:46)
[2017-04-09] MEDS ORDERED: PERCOCET10 PO (15:47)
[2017-04-09] MEDS ORDERED: CYANOCOBAL1000 MCG/M (15:47)
[2017-04-09] MEDS ORDERED: FERRO-TIME325 MG PO (15:47)
[2017-04-09] MEDS ORDERED: VITAMIN D32000 UNI1 PO (15:48)
[2017-04-09] MEDS ORDERED: ASPIRIN81 M2 PO (15:48)
[2017-04-09 15:51] LABS: HEMOGLOBIN 13.9 gm/dL (12.0-16.0); MEAN CELL VOLUME 85.9 FL (83-96); MEAN CORPUSCULAR HEMOGLOBIN 29.1 PG (28-34); MEAN CORPUSCULAR HGB CONC 33.8 g/dL (30-36); MEAN PLATELET VOLUME 8.1 FL (6.5-11.5); RED BLOOD COUNT 4.77 X10e (3.90-5.30); RED CELL DISTRIBUTION WIDTH 16.1 % (11.0-15.5); WHITE BLOOD COUNT 8.2 X10e3 (4.0-10.5)
[2017-04-09 16:29] LABS: BASOPHIL% 0.4 % (0-2.5); HEMATOCRIT 38.4 % (35.0-45.0); HEMOGLOBIN 13.1 gm/dL (12.0-16.0); LYMPHOCYTE# 0.5 X10e3 (1.0-3.5); LYMPHOCYTE% 6.6 % (17.0-45.0); MEAN CELL VOLUME 84.9 FL (83-96); MEAN CORPUSCULAR HEMOGLOBIN 29.1 PG (28-34); MEAN CORPUSCULAR HGB CONC 34.3 g/dL (30-36); MEAN PLATELET VOLUME 8.4 FL (6.5-11.5); MONOCYTE# 0.5 X10e3 (0-1.0); MONOCYTE% 5.9 % (3.0-12.0); NEUTROPHIL% 87.1 % (40-75); PLATELET COUNT 258 X10e3 (140-420); RED BLOOD COUNT 4.52 X10e (3.90-5.30)
[2017-04-09 16:30] LABS: DIFF IND NO
[2017-04-09 17:31] LABS: BUN/CREATININE RATIO 14.28; CREATININE SERUM 0.7 mg/dL (0.6-1.4); GLOM FILT RATE Estimated 91.6 mL/min (>60)
[2017-04-09 17:32] LABS: ALBUMIN SERUM 1.9 g/dL (3.5-5.0); BILIRUBIN, DIRECT 0.2 mg/dL (0.0-0.2); BILIRUBIN,INDIRECT 0.6 mg/dL (0.0-0.9); BILIRUBIN,TOTAL 0.8 mg/dL (0.2-2.0); CALCIUM SERUM 7.7 mg/dL (8.4-10.2); POTASSIUM 3.8 mmol/L (3.5-5.1); PROTEIN TOTAL SERUM 5.2 g/dL (6.0-8.3)
[2017-04-10 06:30] LABS: HEMATOCRIT 41.4 % (35.0-45.0); HEMOGLOBIN 13.7 gm/dL (12.0-16.0); MEAN CELL VOLUME 87.2 FL (83-96); MEAN CORPUSCULAR HEMOGLOBIN 28.8 PG (28-34); MEAN PLATELET VOLUME 7.7 FL (6.5-11.5); RED BLOOD COUNT 4.75 X10e (3.90-5.30); RED CELL DISTRIBUTION WIDTH 16.3 % (11.0-15.5)
[2017-04-10 07:37] LABS: BUN/CREATININE RATIO 17.14; CALCIUM SERUM 7.9 mg/dL (8.4-10.2); CREATININE SERUM 0.7 mg/dL (0.6-1.4); GLOM FILT RATE Estimated 91.6 mL/min (>60); MAGNESIUM 1.8 mg/dL (1.6-3.0); POTASSIUM 4.1 mmol/L (3.5-5.1)
[2017-04-10 13:49] LABS: INR 1.4; PARTIAL THROMBOPLASTIN TIME 29.6 SECONDS (23.5-31.3); PROTHROMBIN TIME (PATIENT) 14.7 SECONDS (10.0-11.7)
== END 2017-04-10 18:14 | DRG 291 ==
LOC: CED 14:03 → CEDOF 18:40 → CED 19:05 → C3A PCU 19:05 → CEDOF 19:05 → C3A PCU 20:45 → CEDOF 20:45 → C3A PCU 04-10 18:14
PROVIDERS: Emergency Medicine; Internal Medicine; Radiology Diagnostic Radiology
DX: I11.0 Hypertensive heart disease with heart failure (principal); J96.21 Acute and chronic respiratory failure with hypoxia; E43 Unspecified severe protein-calorie malnutrition; Z99.81 Dependence on supplemental oxygen; J44.1 Chronic obstructive pulmonary disease with (acute) exacerbation; E87.1 Hypo-osmolality and hyponatremia; I08.1 Rheumatic disorders of both mitral and tricuspid valves; E89.6 Postprocedural adrenocortical (-medullary) hypofunction; I48.2 Chronic atrial fibrillation; I50.33 Acute on chronic diastolic (congestive) heart failure; F31.9 Bipolar disorder, unspecified; G47.33 Obstructive sleep apnea (adult) (pediatric); M41.9 Scoliosis, unspecified; Z90.49 Acquired absence of other specified parts of digestive tract; Z90.710 Acquired absence of both cervix and uterus; Z88.0 Allergy status to penicillin; Z68.29 Body mass index [BMI] 29.0-29.9, adult; Z98.84 Bariatric surgery status
CPT/HCPCS: 36415; 36600; 51702; 71010; 80048; 80076; 81003; 82553; 82803; 83605; 83690; 83735; 83880; 83930; 84300; 84484; 85025; 85027; 85610; 85730; 87040; 87086; 92610; 93005; 94640; 94760; 96365; 96367; 96375; 99285; G8996-GN; G8997-GN; G8998-GN; J0692; J0696; J1170; J1940; J2060; J2930; J3260; J3370

== ENCOUNTER 2017-04-10 18:15 | Inpatient (IN) | payer OTHER ==
--- NOTE | ~2017-04-10 | DS ---
Unit #: [id number] #: [id number] Patient: ANA MARÍA BECKETT [id number] [address] [address] [id number] I MR#: [id number] NAME: ANA MARÍA BECKETT. ROOM: 304 Age: 66 Sex: F Admission Date: 04/10/2017 : 1950 Discharge Date: 04/12/2017 Attending Physician: Maribeth Bergman M.D. DISCHARGE SUMMARY SUMMARY DATE OF March 13, 2017 CAUSE OF 1. Severe chronic diastolic congestive heart failure refractory to medical management. 2. Severe protein calorie malnutrition. SECONDARY DIAGNOSES 1. Chronic obstructive pulmonary disease. 2. Chronic hypoxic respiratory failure. 3. Right pleural effusion. 4. Chronic atrial fibrillation. 5. Bipolar disorder. 6. Hypertension. HISTORY OF PRESENT ILLNESS AND BRIEF HOSPITAL COURSE Ms. Beckett is a 66-year-old female who presented to the emergency room complaining of worsening shortness of breath. The patient had been recently discharged from this facility with an exacerbation of diastolic congestive heart failure, as well as COPD exacerbation and E. coli bacteremia. The patient had had multiple recurrent admissions to the hospital for exacerbations of her heart failure. Upon admission, Cardiology and Pulmonary were consulted. The patient and the family were approached regarding the overall poor prognosis of the patient's condition considering her recurrent hospitalizations, persistent hyponatremia, and overall refractory to medical management. Because of these issues, the possibility of hospice was reviewed, and the family was agreeable to this. The family met with hospice care, and it was decided to make the patient comfort care only. The patient's medical condition very rapidly deteriorated, and her respiratory status also worsened. The patient was kept comfortable by using Robanul for secretions, as well as Dilaudid and Ativan for management of anxiety and shortness of breath. The family was also provided with support. They were continuously at bedside. Today, the patient comfortably surrounded by family. Time of was 1420 hours. Arrangements are being made with a home. The body is to be transferred to the [facility] [place], [place]. Unit #: [id number] #: [id number] Patient: ANA MARÍA BECKETT Dictated by... Remberto Sampson/emerson TD: 04/12/2017 19:55 JOB #: [id number] DISCHARGE SUMMARY Page 1 of 1 X X DISCHARGE SUMMARY
[~2017-04-10 18:15] MED LIST changes: +ALDACTONE PO; +CYANOCOBAL1000 MCG/M; +DIGITEK125 MC1 PO; +PERCOCET10 PO; +PROZAC10 M1 PO; +SINGULAIR PO; +[UNRECOGNIZED DRUG - OTHER]
== END 2017-04-12 16:52 | disposition expired | DRG 291 ==
LOC: C3A PCU 18:15
DX: I11.0 Hypertensive heart disease with heart failure (principal); E43 Unspecified severe protein-calorie malnutrition; J96.11 Chronic respiratory failure with hypoxia; J90 Pleural effusion, not elsewhere classified; I48.2 Chronic atrial fibrillation; E87.1 Hypo-osmolality and hyponatremia; I50.32 Chronic diastolic (congestive) heart failure; J44.9 Chronic obstructive pulmonary disease, unspecified; F31.9 Bipolar disorder, unspecified; Z51.5 Encounter for palliative care
CPT/HCPCS: J1170